=== PATIENT | female | born 1960 | race Caucasian/White ===

== ENCOUNTER 2016-10-28 01:55 | Inpatient (IN) | payer OTHER ==
[2016-10-28] VITALS (9 sets, daily range): BP systolic 130–163; BP diastolic 62–88; PULSE 82–102; RESP 16–20; TEMP 98.1–100.3; O2SAT 91–97
[~2016-10-28] VITALS: Ht 170.2 cm; Wt 142.9 kg
--- NOTE | 2016-10-28 01:55 | NUR ---
ER at bedside examining patient.
--- NOTE | 2016-10-28 01:55 | NUR ---
Patient to ER bed 6 to gown for evaluation. Side rails up.
--- NOTE | 2016-10-28 01:55 | NUR ---
Pt came from home, A&Ox4, c/o swollen tongue x 3hrs, sore throat with pain level of 4/10. Pt appears to have difficulty talking due to her swollen tougue. Pt denies fever, SOB, N/V. aware
[2016-10-28] MEDS ORDERED: EPINEPHrine 1 MG/ML AMP IM ONE ×2 (02:00→02:15)
[2016-10-28] MEDS ORDERED: DIPHENHYDRAMINE INJ 50 MG/ML VIAL IVP ONE ×2 (02:00→02:45)
[2016-10-28] MEDS ORDERED: methylPREDNISolone SOD SUCC/PF 62.5 MG/ML VIAL IVP ONE (02:00)
[2016-10-28 02:46] LABS: BASOPHILS % (AUTO) 0.4 % (0.0-2.0); EOSINOPHILS # (AUTO) 0.2 K/uL (0.0-0.4); EOSINOPHILS % (AUTO) 2.8 % (0.0-4.0); HEMATOCRIT 26.8 % (36-48); HEMOGLOBIN 9.2 g/dL (12.0-16.0); LYMPHOCYTES # (AUTO) 1.3 K/uL (1.0-5.5); LYMPHOCYTES % (AUTO) 20.8 % (20.5-51.5); MEAN CORPUSCULAR HEMOGLOBIN 31 pg (27-31); MEAN CORPUSCULAR HGB CONC 34 % (32-36); MEAN CORPUSCULAR VOLUME 92 fL (79.0-98.0); MONOCYTES # (AUTO) 0.5 K/uL (0.0-1.0); MONOCYTES % (AUTO) 7.4 % (1.7-9.3); NEUTROPHILS # (AUTO) 4.4 K/uL (1.8-7.7); NEUTROPHILS % (AUTO) 68.6 % (40.0-70.0); PLATELET COUNT (AUTO) 138 K/uL (130-430); RED BLOOD CELL COUNT(AUTO) 2.93 MIL/uL (4.2-6.2); RED CELL DISTRIBUTION WIDTH 18.4 % (9.0-15.0); WHITE BLOOD COUNT (AUTO) 6.4 K/uL (4.8-10.8)
[2016-10-28 02:51] LABS: INR 1.1 (0.8-1.2); PROTHROMBIN TIME 12.4 SECS (9.5-12.5)
[2016-10-28 02:58] LABS: CALCIUM 9.1 mg/dL (8.4-11.0); CREATININE 1.15 mg/dL (0.55-1.30); POTASSIUM 3.7 mmol/L (3.5-5.1)
[2016-10-28 03:03] LABS: ALBUMIN 3.3 g/dL (3.4-4.8); TOTAL BILIRUBIN 0.9 mg/dL (0.0-1.0); TOTAL PROTEIN, SERUM 8.9 g/dL (6.4-8.3)
--- NOTE | 2016-10-28 03:30 | NUR ---
Pt resting in bed. Pt states decrease in pain and tougue swelling. Pt denies SOB. Pt is able to talk better due to reduced tougue swelling. Vital signs stable.
[2016-10-28] MEDS ORDERED: OMEP20CA10 PO (03:51)
[2016-10-28] MEDS ORDERED: VITD2000 PO (03:51)
[2016-10-28] MEDS ORDERED: GLIP-172 PO (03:51)
[2016-10-28] MEDS ORDERED: FOLI-43 PO (03:51)
[2016-10-28] MEDS ORDERED: BENA20TA2 PO (03:51)
[2016-10-28] MEDS ORDERED: ONDANSETRON HCL 4 MG/2 ML VIAL IVP PRN (04:00)
[2016-10-28] MEDS: FAMOTIDINE PF 20 MG/2 ML VIAL IVP SCH ×3 (04:00→21:04)
[2016-10-28] MEDS ORDERED: hydrALAZINE HCL 20 MG/ML VIAL IVP PRN (04:00)
--- NOTE | 2016-10-28 05:00 | NUR ---
ADMISSION NOTE Received patient from ER via gurney. Patient admitted with diagnosis of Angioedema due to Gerardo inhibitor. Patient is awake, alert, oriented X 4. Patient oriented to hospital room, call light, toileting, pain management and safety-teach back done. Patient informed that Destinee will be her nurse and that their room number is 123A. Personal belongings checked and Belongings List documented. Call light within reach.
--- NOTE | 2016-10-28 05:05 | NUR ---
Patient will be admitted to care of Dr Mata. Admitted to Telemetry unit. Will go to room 123. Belongings list completed. Summary report printed. Report given to MARY ANNE Menendez.
--- NOTE | 2016-10-28 05:15 | NUR ---
Admission Assessment Received patient from ED, AAO x4, no acute distress noted. Assessment complete, vital signs stable, no complain of pain or shortness of breath at this time. IV noted to right AC, saline locked at this time, flushes well, IV fluids to be started. Plan of care discussed with patient, she verbalized understanding. Patient oriented to room and call light and is able to demonstrate correct use. Education provided to call for assistance if she needs to get out of bed, she verbalized understanding. Call light is within reach, all fall and safety precautions in place, will continue to monitor for change in patient status.
[2016-10-28] MEDS: methylPREDNISolone SOD SUCC 40 MG/ML VIAL IVP SCH ×3 (05:30→21:05)
[2016-10-28] MEDS: NACL 0.9% 1,000 ML IV SCH ×2 (05:31→20:48)
[2016-10-28] MEDS ORDERED: LORazepam 2 MG/ML VIAL IM PRN (07:00)
[2016-10-28] MEDS ORDERED: DEXTROSE 50%-WATER 50 ML DISP.SYRIN IVP PRN ×2 (07:00)
[2016-10-28] MEDS ORDERED: GLUCOSE 15 GM GEL (in 37.5 GM TUBE) PO PRN ×2 (07:00)
[2016-10-28] MEDS ORDERED: FUROSEMIDE 20 MG/2 ML VIAL IVP ONE (07:00)
[2016-10-28 07:05] LABS: BASOPHILS % (AUTO) 0.2 % (0.0-2.0); EOSINOPHILS % (AUTO) 0.6 % (0.0-4.0); HEMATOCRIT 26.5 % (36-48); LYMPHOCYTES # (AUTO) 0.3 K/uL (1.0-5.5); LYMPHOCYTES % (AUTO) 5.6 % (20.5-51.5); MEAN CORPUSCULAR HEMOGLOBIN 31 pg (27-31); MEAN CORPUSCULAR HGB CONC 34 % (32-36); MEAN CORPUSCULAR VOLUME 91 fL (79.0-98.0); MONOCYTES # (AUTO) 0.1 K/uL (0.0-1.0); MONOCYTES % (AUTO) 2.2 % (1.7-9.3); NEUTROPHILS # (AUTO) 5.6 K/uL (1.8-7.7); NEUTROPHILS % (AUTO) 91.4 % (40.0-70.0); PLATELET COUNT (AUTO) 139 K/uL (130-430); RED CELL DISTRIBUTION WIDTH 18.2 % (9.0-15.0)
[2016-10-28 07:28] LABS: CALCIUM 9.2 mg/dL (8.4-11.0); CREATININE 1.1 mg/dL (0.55-1.30); PHOSPHORUS 3.2 mg/dL (2.7-4.5); POTASSIUM 4.5 mmol/L (3.5-5.1)
--- NOTE | 2016-10-28 09:08 | NUR ---
Initial Note Patient A/O x4. Respirations even and unlabored. Denies difficulty breathing. IV access patent. Reviewed use of call light with patient, acknowledged understanding. Fall and safety precautions in place. Patient ambulated 5 feet, gait steady.
[2016-10-28] MEDS: ACETAMINOPHEN 325 MG TABLET PO PRN ×3 (09:12→21:06)
[2016-10-28] MEDS: ENOXAPARIN SODIUM 40 MG/0.4 ML SYRINGE SUBCUT SCH (09:13)
--- NOTE | 2016-10-28 10:47 | NUR ---
Notes Patient continues to have low grade fever of 99.9- 100.3; Tylenol administered and cooling measures initiated. FFP transfusion will be started once temperature decreases.
--- NOTE | 2016-10-28 12:14 | NUR ---
Notes Patient exhibiting shortness of breath without exertion. RT was called to administer PRN breathing treatment.
[2016-10-28] MEDS: ALBUTEROL SULFATE 0.083% 2.5 MG/3 ML VIAL.NEB INH PRN (12:32)
[2016-10-28] MEDS: IPRATROPIUM BROM 0.5 MG/2.5 ML VIAL.NEB (ATROVENT) INH PRN (12:32)
--- NOTE | 2016-10-28 12:50 | NUR ---
FFP INITIATION: Consent signed per patient agreeing to administration of blood. Blood has been type and crossmatched. Blood sent from blood bank. Information on unit of FFP checked against patient wristband at bedside by two nurses. All information matches. Patient or responsible green party informed of potential complications associated with blood transfusion. Informed of possible transfusion reaction symptoms. Aware of need to notify nurse at once of itching, shortness of breath, flushing, feeling of impending doom, or other symptoms not previously present. Vital signs taken within 5 minutes prior to initiation of transfusion. RN will remain with patient for first 15 minutes of transfusion at which time vital signs will be re-assessed.
--- NOTE | 2016-10-28 13:05 | NUR ---
Notes Patient denies symptoms of adverse reaction to transfusion of FFP. VSS.
--- NOTE | 2016-10-28 14:32 | NUR ---
Notes Complaint of mild discomfort addressed per MD orders. Denies difficulty breathing at this time.
--- NOTE | 2016-10-28 16:41 | NUR ---
Notes Blood sugar 290 at this time. Will administer insulin per MD orders.
[2016-10-28] MEDS: INSULIN REGULAR, HUMAN 100 UNITS/ML, 10 ML VIAL (novoLIN R) SUBCUT PRN ×2 (17:08→21:14)
[2016-10-28 18:00] LABS: URINE SODIUM, RANDOM 35 mmol/L (40-220)
--- NOTE | 2016-10-28 19:42 | NUR ---
Closing Notes Patient needs met throughout shift. Patient maintained low grade fever at 99.5 majority of the shift. Tylenol and cooling measures applied throughout shift. Patient care endorsed to oncoming shift nurse.
--- NOTE | 2016-10-28 20:00 | NUR ---
PM Shift Assessment Received patient lying in bed, no acute distress noted. Assessment complete, no complain of pain or shortness of breath at this time. IV noted to right AC, IV fluids infusing well, no redness or swelling to IV site. BLE edema noted. Plan of care and safety education discussed with patient, she verbalized understanding. Patient is verbally able to make needs known and encouraged to do so. Call light is within reach, all fall and safety precautions in place, will continue to monitor for change in patient status.
--- NOTE | 2016-10-28 22:15 | NUR ---
RN Rounds Patient is resting quietly in bed, no acute distress noted. Per Dr Mata to check blood sugar ACHS, new orders noted. Blood sugar was assessed and insulin provided per sliding scale. Reminded patient to call for assistance if she needs to get out of bed, she verbalized understanding. Call light is within reach, all fall and safety precautions in place, will continue to monitor for change in patient status.
--- NOTE | 2016-10-28 23:29 | NUR ---
FFP INITIATION: Consent signed per patient agreeing to administration of blood and blood products. Blood has been type and crossmatched. Fresh frozen plasma sent from blood bank. Information on unit of blood checked against patient wristband at bedside by two nurses. All information matches. Patient or responsible green party informed of potential complications associated with blood transfusion. Informed of possible transfusion reaction symptoms. Aware of need to notify nurse at once of itching, shortness of breath, flushing, feeling of impending doom, or other symptoms not previously present. Vital signs taken within 5 minutes prior to initiation of transfusion. RN will remain with patient for first 15 minutes of transfusion at which time vital signs will be re-assessed.
[2016-10-29 00:02] VITALS: BP 136/64; PULSE 85; RESP 17; TEMP 97.4; O2SAT 99
--- NOTE | 2016-10-29 00:26 | NUR ---
RN Rounds Patient is resting quietly in bed, no acute distress noted. Fresh frozen plasma infusing well, no transfusion reaction noted. Warm blanket provided for comfort. Call light is within reach, all fall and safety precautions in place, will continue to monitor.
[2016-10-29 04:00] VITALS: BP 148/85; PULSE 92; RESP 20; TEMP 97.8; O2SAT 98
[2016-10-29] MEDS: methylPREDNISolone SOD SUCC 40 MG/ML VIAL IVP SCH (06:21)
[2016-10-29] MEDS: NACL 0.9% 1,000 ML IV SCH (06:22)
[2016-10-29] MEDS: INSULIN REGULAR, HUMAN 100 UNITS/ML, 10 ML VIAL (novoLIN R) SUBCUT PRN ×2 (06:25→17:39)
[2016-10-29 06:32] LABS: CALCIUM 9.2 mg/dL (8.4-11.0); CREATININE 1.22 mg/dL (0.55-1.30); POTASSIUM 4.4 mmol/L (3.5-5.1)
[2016-10-29 06:56] LABS: BASOPHILS % (AUTO) 0.1 % (0.0-2.0); EOSINOPHILS % (AUTO) 0.6 % (0.0-4.0); HEMATOCRIT 25.5 % (36-48); HEMOGLOBIN 8.6 g/dL (12.0-16.0); LYMPHOCYTES # (AUTO) 0.5 K/uL (1.0-5.5); LYMPHOCYTES % (AUTO) 6.9 % (20.5-51.5); MEAN CORPUSCULAR HEMOGLOBIN 31 pg (27-31); MEAN CORPUSCULAR HGB CONC 34 % (32-36); MEAN CORPUSCULAR VOLUME 91 fL (79.0-98.0); MONOCYTES # (AUTO) 0.5 K/uL (0.0-1.0); MONOCYTES % (AUTO) 6.4 % (1.7-9.3); PLATELET COUNT (AUTO) 149 K/uL (130-430); RED CELL DISTRIBUTION WIDTH 18.2 % (9.0-15.0)
--- NOTE | 2016-10-29 07:20 | NUR ---
Closing Notes Patient is sleeping, respirations are even and unlabored, no acute distress noted. IV fluids infusing well. Patient is stable, all needs met throughout shift. SBAR report was endorsed to AM nurse at bedside.
[2016-10-29 08:00] VITALS: BP 153/78; PULSE 98; RESP 22; TEMP 97.8; O2SAT 98
[2016-10-29] MEDS: FAMOTIDINE PF 20 MG/2 ML VIAL IVP SCH ×2 (09:04→20:51)
[2016-10-29] MEDS: ENOXAPARIN SODIUM 40 MG/0.4 ML SYRINGE SUBCUT SCH (09:04)
--- NOTE | 2016-10-29 09:45 | NUR ---
DR MCGINNIS IN TO SEE PATIENT
[2016-10-29] MEDS ORDERED: METOPROLOL SUCCINATE 25 MG TAB.SR.24H (TOPROL XL) PO ONE (10:00)
--- NOTE | 2016-10-29 10:30 | NUR ---
IV FLUIDS DC'D. PATIENT IS ABLE TO AMBULATE TO CHAIR WITHOUT ASSISTANCE. STEADY GAIT HOWEVER PATIENT STATES SHE USES A WALKER AT HOME.
--- NOTE | 2016-10-29 11:00 | NUR ---
INFORMATION ABOUT METOPROLOL GIVEN TO PATIENT IN HANDOUT FORM
[2016-10-29 12:00] VITALS: BP 165/88; PULSE 74; RESP 21; TEMP 97.4
--- NOTE | 2016-10-29 12:30 | NUR ---
UNABLE TO PERFORM BG CHECK PRIOR TO LUNCH DUE TO NO MACHINES WORKING/AVAILABLE ON THE UNIT
--- NOTE | 2016-10-29 13:53 | NUR ---
OPENING NOTE PATIENT IS AWAKE, ALERT AND ORIENTED. LUNGS CLEAR TO BASES, HEART TONES GOOD. DENIES ANY PAIN AT THIS TIME. +4 PITTING EDEMA TO BLE. PATIENT STATES HER TONGUE STILL FEELS SWOLLEN. STATES SHE HAS BEEN ON AN CADEN INHIBITOR FOR SEVERAL YEARS WITH NO REACTIONS IN THE PAST. PT ALSO STATES SHE DRINKS A FIFTH OF VODKA EVERY DAY Addendum: 10/29/16 at 1356 by Sandra Irene RN TIMESTAMP FOR 0800 ENTRY. LATE ENTRY
--- NOTE | 2016-10-29 13:59 | NUR ---
DR MCGINNIS NOTIFIED OF ELEVATED HR AND ORDERS FOR ATIVAN GIVEN. PT TAUGHT IMPENDING SIGNS OF SEIZURE
[2016-10-29] MEDS: LORazepam 2 MG/ML VIAL IVP PRN (14:22)
--- NOTE | 2016-10-29 16:18 | NUR ---
PATIENT'S IV NO LONGER PATENT. DC'D AND PRESSURE DRESSING APPLIED. NEW 22 G IV TO LEFT FOREARM STARTED. FLUSHES EASILY
[2016-10-29 16:33] VITALS: BP 148/71; PULSE 82; RESP 20; TEMP 97.1; O2SAT 98
--- NOTE | 2016-10-29 17:12 | NUR ---
PATIENT TAKEN OUTSIDE VIA WC TO SMOKE
--- NOTE | 2016-10-29 18:43 | NUR ---
CLOSING NOTE PATIENT BG 183 COVERED W 2 UNITS OF INSULIN. PATIENT REMAINS ALERT, ORIENTED AND COOPERATIVE. DENIES ANY PAIN. PT CONTINUES TO HAVE SOME TROUBLE TALKING DUE TO HER TONGUE BEING SWOLLEN. PATIENT HAD REDRESSED HERSELF IN CLOTHING FROM HOME. THE SHIRT IS STAINED WITH COFFEE AND ACCIDENTAL BLOOD SPILL FROM IV SITE. PT REQUESTING NOT TO WEAR A HOSPITAL GOWN.
[2016-10-29 20:00] VITALS: BP 134/67; PULSE 86; RESP 20; TEMP 98.2; O2SAT 99
--- NOTE | 2016-10-29 20:00 | NUR ---
PM Shift Assessment Received patient lying in bed, no acute distress noted. Assessment complete, vital signs stable, no complain of pain or shortness of breath at this time. IV noted to left forearm, saline locked at this time, no redness or swelling to IV site. BLE pitting edema noted, no tongue swelling noted, no complain of problem swallowing of difficulty breathing at this time. Plan of care and safety education discussed with patient, she verbalized understanding. Patient is verbally able to make needs known and encouraged to do so. Call light is within reach, all fall and safety precautions in place, will continue to monitor for change in patient status.
--- NOTE | 2016-10-29 22:14 | NUR ---
RN Rounds Patient is resting quietly in bed, no acute distress noted. Patient requesting to go outside to smoke, waiver signed. Patient was wheeled out and brought safely back to room. Scheduled medications were administered per MD order earlier. Blood sugar was assessed, no insulin administered per sliding scale, bedtime snack provided. Call light is within reach, all fall and safety precautions in place, will continue to monitor. Addendum: 10/30/16 at 0227 by Destinee Pina RN Respiratory therapist was called for PRN breathing treatment per patient request. Smoking cessation education provided, patient verbalized understanding and states "I've been smoking since I was a little girl, it's not going to stop me now."
[2016-10-30] VITALS (25 sets, daily range): BP systolic 74–181; BP diastolic 44–95; PULSE 77–129; RESP 18–37; TEMP 97–98.5; O2SAT 86–99; Ht 170.2 cm; Wt 142.9 kg
[2016-10-30] MEDS: LORazepam 2 MG/ML VIAL IVP PRN ×5 (00:23→18:22)
--- NOTE | 2016-10-30 00:24 | NUR ---
RN Rounds Patient sitting up at bedside in chair, noted to be anxious and with delirium tremors, PRN Ativan was administered per MD order, will reassess for relief of symptoms. Assisted patient safely to bed and made comfortable. Remained with patient for comfort and reassurance. Encouraged patient to call for assistance as needed. Call light is within reach, all fall and safety precautions in place, will continue to monitor.
--- NOTE | 2016-10-30 02:21 | NUR ---
RN Rounds Patient is sleeping, respirations are even and unlabored, no acute distress noted. Call light is within reach, all fall and safety precautions in place, will continue to monitor.
[2016-10-30] MEDS: DIPHENHYDRAMINE INJ 50 MG/ML VIAL IVP PRN (04:24)
--- NOTE | 2016-10-30 04:30 | NUR ---
RN Rounds Patient sitting up in bed, disoriented after waking up, she was reoriented x4 and verbalized understanding. Assisted up to restroom and safely back to bed. Complains of "minor tongue swelling, but no difficulty swallowing or breathing". O2 saturation 97% on room air. PRN Benadryl was administered per MD order, will reassess for relief of symptoms. Encouraged to call with all needs, she verbalized understanding. Call light is within reach, all fall and safety precautions in place, will continue to monitor.
--- NOTE | 2016-10-30 05:28 | NUR ---
Ativan Administered Patient noted with increasing agitation. Up to restroom with assistance, unsteady gait noted, assisted safely back to bed. Reminded patient not to get up unassisted for safety, patient yelling "Get away from me, stand back!" and holding up fist. PRN Ativan was administered per MD orders. Call light is within reach, all fall and safety measures in place, will continue to monitor closely.
[2016-10-30 06:28] LABS: CALCIUM 9.4 mg/dL (8.4-11.0); CREATININE 1.26 mg/dL (0.55-1.30); POTASSIUM 3.8 mmol/L (3.5-5.1)
[2016-10-30] MEDS ORDERED: LORazepam 2 MG/ML VIAL IM ONE (06:45)
[2016-10-30] MEDS ORDERED: LORazepam 2 MG/ML VIAL ONE (06:49)
[2016-10-30 06:54] LABS: BASOPHILS % (AUTO) 0.5 % (0.0-2.0); EOSINOPHILS # (AUTO) 0.1 K/uL (0.0-0.4); EOSINOPHILS % (AUTO) 0.7 % (0.0-4.0); HEMOGLOBIN 8.9 g/dL (12.0-16.0); LYMPHOCYTES # (AUTO) 1.3 K/uL (1.0-5.5); LYMPHOCYTES % (AUTO) 14.9 % (20.5-51.5); MEAN CORPUSCULAR HEMOGLOBIN 31 pg (27-31); MEAN CORPUSCULAR HGB CONC 33 % (32-36); MEAN CORPUSCULAR VOLUME 92 fL (79.0-98.0); MONOCYTES # (AUTO) 0.6 K/uL (0.0-1.0); MONOCYTES % (AUTO) 6.7 % (1.7-9.3); NEUTROPHILS # (AUTO) 6.5 K/uL (1.8-7.7); NEUTROPHILS % (AUTO) 77.2 % (40.0-70.0); PLATELET COUNT (AUTO) 167 K/uL (130-430); RED BLOOD CELL COUNT(AUTO) 2.93 MIL/uL (4.2-6.2); RED CELL DISTRIBUTION WIDTH 18.1 % (9.0-15.0); WHITE BLOOD COUNT (AUTO) 8.5 K/uL (4.8-10.8)
[2016-10-30] MEDS ORDERED: LORazepam 2 MG/ML VIAL IVP ONE (07:00)
--- NOTE | 2016-10-30 07:10 | NUR ---
Transfer to ICU Patient noted with increased agitation and anger. Got out of bed and began ambulating with unsteady gait to hallway. Asked for pen and paper, they were provided, she began writing something on paper, would not allow nurses to read. Charge nurse and myself standing with patient. Patient refused to go back to bed and began screaming and swinging her arms. MD was paged and on the phone, Charge Nurse remained with patient. New orders for Ativan 3mg IM once now and increase PRN Ativan to 3mg E0ryals. During phone call with MD, Charge Nurse stated that patient turned to ambulate and became unsteady. Patient was assisted to floor by warranty administrator. Patient assisted safely back to bed, IM Ativan was administered. Patient was moved closer to nurses station for close monitoring. Once again she became combative, kicking, swinging and screaming. Patient trying to get out of bed. MD was called. New orders for transfer to ICU for closer monitoring due to DT's. Also started patient on Librium. SBAR report was endorsed to IT PROGRAMMER ANALYST at bedside.
[2016-10-30] MEDS: chlordiazePOXIDE HCL 25 MG CAPSULE PO SCH ×3 (07:30→23:30)
--- NOTE | 2016-10-30 07:40 | NUR ---
Transfer to ICU Received report from Destinee NORTH from Telemetry. Per report, pt had written a note regarding a "dog bomb police at our facility," with some illegible writing. Received pt from telemetry unit accompanied by 2 security and 2 RNs. Pt noted to be combative and verbally abusive, and is now sleeping in bed. IV 22G in RFA intact, patent. Edema noted on BLE. Situated pt to room and call light. Will continue to monitor.
[2016-10-30] MEDS: ALBUTEROL SULFATE 0.083% 2.5 MG/3 ML VIAL.NEB INH PRN ×2 (07:59→20:28)
[2016-10-30] MEDS: IPRATROPIUM BROM 0.5 MG/2.5 ML VIAL.NEB (ATROVENT) INH PRN ×2 (07:59→20:28)
[2016-10-30] MEDS ORDERED: NICOTINE 14 MG/24 HR PATCH.TD24 TD SCH (09:00)
[2016-10-30] MEDS: FAMOTIDINE PF 20 MG/2 ML VIAL IVP SCH ×2 (09:00→21:00)
[2016-10-30] MEDS: ENOXAPARIN SODIUM 40 MG/0.4 ML SYRINGE SUBCUT SCH (09:00)
[2016-10-30] MEDS ORDERED: METOPROLOL SUCCINATE 25 MG TAB.SR.24H (TOPROL XL) PO SCH (09:00)
--- NOTE | 2016-10-30 09:00 | NUR ---
TRANSFER OF CARE RECEIVED PT FROM MARY ANNE PÉREZ. PT IS YELLING AND THRASHING IN BED. LEGS ARE OVER SIDERAIL OF BED. ATTEMPTED IN ASSISTING PT WITH REPOSITIONING. PT IS THRASHING AND KICKING ME. PT CONT YELLING- DOES NOT RESPOND TO QUESTIONS OF ORIENTATION. CANNOT ASSESS HEART OR LUNG SOUNDS- PT CONT TO KICK ME. PT IS CONNECTED TO ICU MONITOR. WILL CONT TO MONITOR.
--- NOTE | 2016-10-30 09:15 | NUR ---
RN NOTES PATIENT YELLING AT THIS TIME, SEVERELY AGITATED, TRYING TO GET OUT OF SOFT WRIST RESTRAINTS. SECURITY HERE FOR ASSISTANCE. PATIENT ENCOURAGED TO CALM DOWN, TO NO AVAIL. IV LOCK INFILTRATED, g20 ANGIO INSERTED ON THE RIGHT WRIST, IV LOCK FLUSHED. PATIENT MEDICATED WITH ATIVAN IVP FOR SEVERE AGITATION. WILL CONTINUE TO MONITOR CLOSELY.
[2016-10-30] MEDS ORDERED: HALOPERIDOL LACTATE 5 MG/ML VIAL IVP ONE (10:00)
--- NOTE | 2016-10-30 10:00 | NUR ---
02 SAT 02 SAT DROPPING TO 80S, 85-89% ON NC.
[2016-10-30] MEDS: D5/0.45 NS 1,000 ML IV SCH (10:04)
--- NOTE | 2016-10-30 10:41 | NUR ---
CALLED SPOKE WITH DR MCGINNIS. NEW ORDERS FOR BIPAP ORDERED. RT CALLED AND MADE AWARE
--- NOTE | 2016-10-30 11:00 | NUR ---
F/C F/C PLACED. ASSISTED BY RADIO TESTER, WARREN, AND SECURITY MCKEON. PT SKY PROC WELL. FLASH URINE NOTED
[2016-10-30] MEDS: FOLIC ACID 1 MG, THIAMINE HCL 100 MG, MAGNESIUM SULFATE 1 GM, MVI 10 ML in NACL 0.9% 1,... IV SCH (11:54)
--- NOTE | 2016-10-30 13:06 | NUR ---
IV RE-INSERTION: Complaining of pain to IV site. Restarted on RFA. Successful after 2 attempts- PT THRASHING. Resumed current IVF of BANANA MADSEN and regulated @ 80 per hour. Will observe for any signs of infiltration.
--- NOTE | 2016-10-30 16:40 | NUR ---
FAMILY BROTHER HERE TO SEE PT. UPDATED BROTHER ON PT STATUS. PT LIVES WITH BROTHER. ALL QUESTIONS ANSWERED. REVIEWED POC. BROTHER- KIP, VERBALIZED UNDERSTANDING
[2016-10-30] MEDS: INSULIN REGULAR, HUMAN 100 UNITS/ML, 10 ML VIAL (novoLIN R) SUBCUT PRN ×2 (17:52→21:16)
[2016-10-30 18:12] LABS: BLOOD GAS PH 7.311 (7.350-7.450)
[2016-10-30 18:13] LABS: ABG TOTAL HEMOGLOBIN 10.6 G/dL (12.0-18.0); BLOOD GAS BASE EXCESS -4.7 mmol/L (-3.0-3.0); BLOOD GAS COHb% 0.4 % (0.5-1.5); BLOOD GAS HHB 18.8 % (0.0-6.0); BLOOD O2Hb% 80.3 % (94.0-97.0)
--- NOTE | 2016-10-30 18:42 | NUR ---
CLOSING NOTE PT RESTING IN BED. ALL NEEDS MET. HOURLY AND PRN ROUNDS OBSERVED THROUGHOUT SHIFT. WILL ENDORSE REPORT TO NOC SHIFT NURSE.
--- NOTE | 2016-10-30 20:00 | NUR ---
LETHARGIC, RESPONDS TO NOXIOUS STIMULI. RESTLESS AT TIMES. SPEECH GARBLED. ON BIPAP 10/5, FIO2 50%, BUR 20. THRASHES LEGS OVER SIDE RAILS. SIDE RAILS PADDED. RADHA SOFT WRIST RESTRAINTS ON FOR SAFETY. GONZALEZ CATH PATENT DRAINING CLEAR LUIS URINE TO GRAVITY.
--- NOTE | 2016-10-30 21:00 | NUR ---
ACCU-CHEK 172, 4 UNITS REGULAR INSULIN SQ GIVEN. HS CARE. FREQUENT REPOSITIONING AND INTERVENTION. ORAL CARE GIVEN WITH TOOTHETTES AND ORAL RINSE. SUCTIONED NASOTRACHEALLY BY RT WITH COPIOUS AMOUNTS OF TENACIOUS NICHOLSON COLORED MUCUS OBTAINED.
--- NOTE | 2016-10-30 22:00 | NUR ---
UO ADEQUATE. FREQUENT REPOSITIONING. PULSES PALPABLE. BANANA BAG AT 80CC/HR ALTERNATED WITH D5 1/2NS AT 75CC/HR.
--- NOTE | 2016-10-30 23:25 | NUR ---
DR DAVILA NOTIFIED OF DESATURATION. ABG'S ORDERED, DR ELLIS CONSULT, ER DR TO INTUBATE, ABG'S 30 MIN AFTER INTUBATION, CXR AND ABG'S IN AM, START PROPOFOL, TITRATE FOR SBP> 90, TO BE IMPLEMENTED.
[2016-10-31] VITALS (36 sets, daily range): BP systolic 59–136; BP diastolic 38–81; PULSE 66–99; RESP 14–27; TEMP 97.8–98.8; O2SAT 94–100
--- NOTE | 2016-10-31 | NUR ---
ER HERE, INTUBATED PT. DR DE LA ROSA, NUTRITION TEACHER FOR DR ELLIS, NOTIFIED OF ABG'S, NEW ORDERS GIVEN AND IMPLEMENTED.
[2016-10-31] MEDS ORDERED: ETOMIDATE 20 MG/ 10 ML VIAL (AMIDATE) IVP ONE (00:05)
[2016-10-31] MEDS ORDERED: SUCCINYLCHOLINE CHLORIDE 20 MG/ML(QUELICIN) IVP ONE (00:05)
[2016-10-31 01:00] LABS: BLOOD GAS PH 7.168 (7.350-7.450)
[2016-10-31 01:01] LABS: BLOOD GAS BASE EXCESS -5.1 mmol/L (-3.0-3.0)
[2016-10-31 01:02] LABS: ABG TOTAL HEMOGLOBIN 10.7 G/dL (12.0-18.0); BLOOD GAS COHb% 0.2 % (0.5-1.5); BLOOD GAS HHB 13.9 % (0.0-6.0); BLOOD O2Hb% 85.8 % (94.0-97.0)
[2016-10-31 01:07] LABS: BLOOD GAS BASE EXCESS -3.2 mmol/L (-3.0-3.0); BLOOD GAS COHb% 0.5 % (0.5-1.5); BLOOD GAS HHB 0.8 % (0.0-6.0); BLOOD O2Hb% 98.2 % (94.0-97.0)
[2016-10-31] MEDS: D5/0.45 NS 1,000 ML IV SCH (01:08)
[2016-10-31] MEDS: PROPOFOL DRIP 100 ML IV PRN ×5 (01:08→21:14)
--- NOTE | 2016-10-31 01:20 | NUR ---
BOUTS OF RESTLESSNESS. PROPOFOL STARTED AT 5 MCG/KG/MIN.
--- NOTE | 2016-10-31 02:00 | NUR ---
BP LOW, PROPOFOL OFF AT THIS TIME. DR DAVILA NOTIFIED. ORDERED 500CC NS BOLUS, START LEVOPHED TO KEEP SBP>90, CARRIED OUT.
[2016-10-31] MEDS ORDERED: NOREPINEPHRINE 4 MG/4 ML VIAL IV ONE (02:14)
[2016-10-31] MEDS ORDERED: NS 500 ML IV ONE (02:15)
[2016-10-31] MEDS ORDERED: PIPERACILLIN/TAZOBACTAM 4.5 GM/VIAL (ZOSYN) IV ONE (02:40)
[2016-10-31] MEDS ORDERED: IPRATROPIUM/ALBUTEROL SULFATE 3 ML AMPUL.NEB INH PRN (02:45)
--- NOTE | 2016-10-31 02:45 | NUR ---
BP 80/58, LEVOPHED DRIP TITRATED TO 12 MCG/MIN.
[2016-10-31] MEDS: PIPERACILLIN/TAZO 4.5GM/DEX-IS 100 ML IV SCH ×3 (03:00→20:00)
[2016-10-31] MEDS: methylPREDNISolone SOD SUCC 40 MG/ML VIAL IVP SCH ×3 (03:03→20:00)
[2016-10-31] MEDS ORDERED: VANCOMYCIN HCL 1000 MG/VIAL IV ONE (03:18)
[2016-10-31] MEDS ORDERED: VANCOMYCIN HCL 500 MG/VIAL IV ONE (03:19)
--- NOTE | 2016-10-31 03:50 | NUR ---
RESTLESS, DIPRIVAN STARTED AT 10MCG/KG/MIN.
[2016-10-31] MEDS ORDERED: VANCOMYCIN HCL 1,500 MG in NS 250 ML IV ONE (04:00)
--- NOTE | 2016-10-31 04:00 | NUR ---
VERY RESTLESS. THRASHING LEGS. DIPRIVAN TITRATED UP TO 15 MCG/KG/MIN, THEN TO 20 MCG/KG/MIN. SUCTIONED. TURNED. ORAL CARE GIVEN. UO GOOD.
--- NOTE | 2016-10-31 04:20 | NUR ---
DIPRIVAN TITRATED UP TO 25 MCG/KG/MIN. LEFT FA PIV DISLODGED. PIV STARTED IN LEFT WRIST, GAUGE #20. PROPOFOL CONNECTED TO THIS PIV.
[2016-10-31] MEDS: IPRATROPIUM/ALBUTEROL SULFATE 3 ML AMPUL.NEB INH SCH ×6 (04:33→23:44)
--- NOTE | 2016-10-31 05:00 | NUR ---
CHG BATH GIVEN. GONZALEZ CARE, SANDEEP-CARE, BACK CARE GIVEN. Z-GUARD TO REDDENED AREAS AND UNDER SKIN FOLDS, SKIN CARE RENDERED. COMPLETE LINEN CHANGE. DOES NOT ASSIST WITH TURNING. SKY PROC WELL.
[2016-10-31 05:43] LABS: BILIRUBIN,URINE NEGATIVE (NEGATIVE); BLOOD, URINE 2+ (NEGATIVE); COLOR,URINE YELLOW (YELLOW); GLUCOSE,URINE NEGATIVE (NEGATIVE); KETONES,URINE NEGATIVE (NEGATIVE); LEUKOCYTE ESTERASE ,URINE NEGATIVE (NEGATIVE); NITRITE, URINE NEGATIVE (NEGATIVE); PROTEIN URINE TRACE (NEGATIVE); UROBILINOGEN,URINE 0.2 (0.2-1.0)
[2016-10-31] MEDS ORDERED: PIPERACILLIN/TAZO 4.5GM/DEX-IS 100 ML IV SCH (06:00)
--- NOTE | 2016-10-31 06:00 | NUR ---
SUCTIONED AND TURNED Q2 HRS AND PRN. UO GOOD. PULSES PALPABLE. BOUTS OF RESTLESSNESS. REMAINS IN GUARDED CONDITION.
[2016-10-31 06:14] LABS: CLARITY/URINE SLIGHTLY CLOUDY (CLEAR)
[2016-10-31 06:25] LABS: BACTERIA,URINE FEW /HPF (None Seen); RBC,URINE 20-50 /HPF (0-3)
[2016-10-31 06:26] LABS: MUCUS,URINE None Seen /LPF (None Seen)
--- NOTE | 2016-10-31 06:30 | NUR ---
ACCU-CHEK 222, 4 UNITS REGULAR INSULIN SQ GIVEN PER SLIDING SCALE COV.
[2016-10-31] MEDS: INSULIN REGULAR, HUMAN 100 UNITS/ML, 10 ML VIAL (novoLIN R) SUBCUT PRN ×4 (06:35→22:56)
[2016-10-31 06:48] LABS: INR 1.2 (0.8-1.2); PROTHROMBIN TIME 12.6 SECS (9.5-12.5)
[2016-10-31 07:02] LABS: CALCIUM 8.8 mg/dL (8.4-11.0); CREATININE 1.26 mg/dL (0.55-1.30); POTASSIUM 4.2 mmol/L (3.5-5.1)
[2016-10-31 07:06] LABS: BASOPHILS % (AUTO) 0.2 % (0.0-2.0); EOSINOPHILS % (AUTO) 0.1 % (0.0-4.0); HEMATOCRIT 27.3 % (36-48); LYMPHOCYTES # (AUTO) 0.4 K/uL (1.0-5.5); LYMPHOCYTES % (AUTO) 4.3 % (20.5-51.5); MEAN CORPUSCULAR HEMOGLOBIN 31 pg (27-31); MEAN CORPUSCULAR HGB CONC 33 % (32-36); MEAN CORPUSCULAR VOLUME 93 fL (79.0-98.0); MONOCYTES # (AUTO) 0.7 K/uL (0.0-1.0); MONOCYTES % (AUTO) 7.2 % (1.7-9.3); NEUTROPHILS # (AUTO) 8.9 K/uL (1.8-7.7); NEUTROPHILS % (AUTO) 88.2 % (40.0-70.0); PLATELET COUNT (AUTO) 204 K/uL (130-430); RED BLOOD CELL COUNT(AUTO) 2.93 MIL/uL (4.2-6.2)
[2016-10-31] MEDS: chlordiazePOXIDE HCL 25 MG CAPSULE PO SCH ×3 (07:30→22:30)
[2016-10-31] MEDS ORDERED: SUCCINYLCHOLINE CHLORIDE 20 MG/ML(QUELICIN) ONE (08:00)
[2016-10-31] MEDS ORDERED: ETOMIDATE 20 MG/ 10 ML VIAL (AMIDATE) ONE (08:00)
--- NOTE | 2016-10-31 08:00 | NUR ---
AM Shift Assessment Received pt lethargic, responsive to tactile stimuli. Pt is intubated 7.5 cm, 23 cm lip line, connected to vent AC 18, TV 600, FiO2 50%, PEEP 5. Pt is on propofol 25 mcg/kg/min and levophed 12 mcg/min and D5 1/2 NS 75 ml/hr. Pt is in no acute distress, no signs of pain noted. IV sites intact, patent, no erythema noted. Noted generalized pitting edema and redness at skin folds, covered with z-guard. Michael in place draining yellow urine. Bilateral soft wrist restraints in place, no skin breakdown noted, pulses present. Bed in lowest position. Call light in reach. Will continue to monitor.
--- NOTE | 2016-10-31 08:00 | NUR ---
RT NOTE ETT PULLED BACK 1CM PER MD ORDER TO 23CM AT LIPLINE, NO RESP DISTRESS NTD. RN INFORMED
[2016-10-31] MEDS: ENOXAPARIN SODIUM 40 MG/0.4 ML SYRINGE SUBCUT SCH (08:18)
[2016-10-31 08:22] LABS: ABG TOTAL HEMOGLOBIN 10.6 G/dL (12.0-18.0); BLOOD GAS BASE EXCESS -2.8 mmol/L (-3.0-3.0); BLOOD GAS COHb% 0.2 % (0.5-1.5); BLOOD GAS HHB 2.9 % (0.0-6.0); BLOOD GAS PH 7.454 (7.350-7.450); BLOOD O2Hb% 96.5 % (94.0-97.0)
[2016-10-31] MEDS: FAMOTIDINE PF 20 MG/2 ML VIAL IVP SCH ×2 (08:22→22:30)
[2016-10-31] MEDS: NOREPINEPHRINE BITARTRATE 4 MG in NS 246 ML IV PRN ×2 (08:22→15:07)
[2016-10-31] MEDS: NICOTINE 14 MG/24 HR PATCH.TD24 TD SCH (08:29)
--- NOTE | 2016-10-31 09:35 | NUR ---
Diprivan Pt noted with increased agitation and kicking. Increased diprivan to 30 mcg/kg/min.
--- NOTE | 2016-10-31 14:00 | NUR ---
BP - 130/72 LEVOPHED TITRATED DOWN TO 6MCG/MIN
[2016-10-31] MEDS: LORazepam 2 MG/ML VIAL IVP PRN ×2 (14:19→22:31)
--- NOTE | 2016-10-31 15:00 | NUR ---
Levophed Pt's BP stable without support. SBP 136. Turned off levophed drip. Will continue to monitor.
--- NOTE | 2016-10-31 15:00 | NUR ---
Diprivan Pt with increased agitation, kicking, and swinging arms. Increased diprivan to 40 mcg/kg/min.
--- NOTE | 2016-10-31 15:35 | NUR ---
Dr. Espinoza in to see pt.
[2016-10-31] MEDS ORDERED: FUROSEMIDE 40 MG/4 ML VIAL IVP ONE (15:45)
[2016-10-31] MEDS ORDERED: MORPHINE 4 MG/ML INJ. SYRINGE IVP PRN (15:45)
--- NOTE | 2016-10-31 16:00 | NUR ---
PICC Line PICC line inserted to IRVIN by PICC line nurse. Obtained CXR for placement, per report, PICC line needs to be advanced 5 cm. Awaiting PICC line nurse to return.
[2016-10-31] MEDS: FOLIC ACID 1 MG, THIAMINE HCL 100 MG, MAGNESIUM SULFATE 1 GM, MVI 10 ML in NACL 0.9% 1,... IV SCH (17:10)
[2016-10-31] MEDS: MORPHINE 2 MG/ML INJ. SYRINGE IVP PRN (17:25)
[2016-10-31] MEDS: VANCOMYCIN HCL 1,500 MG in NS 250 ML IV SCH (17:35)
--- NOTE | 2016-10-31 17:40 | NUR ---
RT NOTE VENT CHANGE MADE AT THIS TIME, AC 14 AND FIO2 TITRATED DOWN TO 40% PER MD ORDER, RN INFORMED, NO RESP DISTRESS NTD
--- NOTE | 2016-10-31 18:30 | NUR ---
PICC Line Update PICC line fixed and verified with CXR and is okay for use.
--- NOTE | 2016-10-31 19:40 | NUR ---
Endorsement Endorsed plan of care to Renae NORTH.
--- NOTE | 2016-10-31 20:00 | NUR ---
ASSESSMENT Pt lethargic, orally intubated, tolerating current vent settings. Ogt was pulled out by pt, and reinserted after one attempt, orally with fr 18. Placement checked by irrigating tube. PICC line present right upper arm, dressing dry and intact. Michael cath in use, draining caio color urine. IV sites present right forearm 20ga and left wrist 20ga, no redness or swelling noted @ sites. Skin intact. Low air loss mattress in use. pt on Levophed and Diprivan drips.
[2016-10-31] MEDS: DIPHENHYDRAMINE INJ 50 MG/ML VIAL IVP PRN (22:30)
[2016-11-01] VITALS (35 sets, daily range): BP systolic 95–132; BP diastolic 52–79; PULSE 59–91; RESP 14–34; TEMP 97.2–98.7; O2SAT 94–100
[2016-11-01] MEDS: PROPOFOL DRIP 100 ML IV PRN ×6 (01:51→22:53)
[2016-11-01] MEDS: methylPREDNISolone SOD SUCC 40 MG/ML VIAL IVP SCH ×3 (03:30→20:02)
[2016-11-01] MEDS: PIPERACILLIN/TAZO 4.5GM/DEX-IS 100 ML IV SCH ×3 (03:31→20:02)
[2016-11-01] MEDS: VANCOMYCIN HCL 1,500 MG in NS 250 ML IV SCH ×2 (05:37→16:29)
[2016-11-01] MEDS: NACL 0.9% 1,000 ML IV SCH (05:42)
[2016-11-01] MEDS: LORazepam 2 MG/ML VIAL IVP PRN ×2 (05:59→21:13)
[2016-11-01] MEDS: INSULIN REGULAR, HUMAN 100 UNITS/ML, 10 ML VIAL (novoLIN R) SUBCUT PRN ×3 (06:00→17:22)
--- NOTE | 2016-11-01 06:00 | NUR ---
IV 20ga right arm and 20ga left wrist discontinued.
[2016-11-01 06:51] LABS: BASOPHILS % (AUTO) 0.4 % (0.0-2.0); EOSINOPHILS % (AUTO) 0.1 % (0.0-4.0); HEMOGLOBIN 8.5 g/dL (12.0-16.0); LYMPHOCYTES # (AUTO) 0.5 K/uL (1.0-5.5); LYMPHOCYTES % (AUTO) 6.7 % (20.5-51.5); MEAN CORPUSCULAR HEMOGLOBIN 30 pg (27-31); MEAN CORPUSCULAR HGB CONC 33 % (32-36); MEAN CORPUSCULAR VOLUME 93 fL (79.0-98.0); MONOCYTES # (AUTO) 0.3 K/uL (0.0-1.0); MONOCYTES % (AUTO) 4.9 % (1.7-9.3); NEUTROPHILS # (AUTO) 6.3 K/uL (1.8-7.7); NEUTROPHILS % (AUTO) 87.9 % (40.0-70.0); PLATELET COUNT (AUTO) 154 K/uL (130-430); WHITE BLOOD COUNT (AUTO) 7.1 K/uL (4.8-10.8)
--- NOTE | 2016-11-01 07:20 | NUR ---
[place] of care Received report from outgoing RN. Pt resting in bed with Diprivan drip. On ETT without SOB. No sign of pain. Will continue to monitor.
[2016-11-01 07:24] LABS: CALCIUM 8.8 mg/dL (8.4-11.0); CREATININE 1.38 mg/dL (0.55-1.30); TOTAL BILIRUBIN 0.9 mg/dL (0.0-1.0); TOTAL PROTEIN, SERUM 7.9 g/dL (6.4-8.3)
[2016-11-01] MEDS: IPRATROPIUM/ALBUTEROL SULFATE 3 ML AMPUL.NEB INH SCH ×5 (07:37→23:29)
[2016-11-01 08:13] LABS: ABG TOTAL HEMOGLOBIN 9.3 G/dL (12.0-18.0); BLOOD GAS BASE EXCESS -0.1 mmol/L (-3.0-3.0); BLOOD GAS COHb% 0.3 % (0.5-1.5); BLOOD GAS HHB 2.3 % (0.0-6.0); BLOOD GAS PH 7.442 (7.350-7.450); BLOOD O2Hb% 97.2 % (94.0-97.0)
[2016-11-01] MEDS: FAMOTIDINE PF 20 MG/2 ML VIAL IVP SCH ×2 (08:15→21:14)
[2016-11-01] MEDS: chlordiazePOXIDE HCL 25 MG CAPSULE PO SCH ×3 (08:15→21:13)
[2016-11-01] MEDS: ENOXAPARIN SODIUM 40 MG/0.4 ML SYRINGE SUBCUT SCH (08:15)
[2016-11-01] MEDS: NICOTINE 14 MG/24 HR PATCH.TD24 TD SCH (08:16)
--- NOTE | 2016-11-01 12:00 | NUR ---
Nursing Update Resting in bed. No SOB. Same vent settings. No injury on restraints. Will continue to monitor.
--- NOTE | 2016-11-01 17:00 | NUR ---
Transferred to bariatric bed Transferred pt to bariatric bed with the help of 4 nurses. No injury. NO SOB. Will continue to monitor.
[2016-11-01] MEDS: FOLIC ACID 1 MG, THIAMINE HCL 100 MG, MAGNESIUM SULFATE 1 GM, MVI 10 ML in NACL 0.9% 1,... IV SCH (17:20)
--- NOTE | 2016-11-01 18:00 | NUR ---
Called dietary to follow up on Gordo TYLER
--- NOTE | 2016-11-01 19:20 | NUR ---
PM SHIFT ASSESSMENT Pt lying in bed, opens eyes spontaneously. Unable to make most needs known r/t ETT, able to nod yes or no at times. Pt is on bilateral wrist restraints, skin is intact. Pt is on Dipprivan @ 40ml/hr and tolerating well. PICC to IRVIN, double lumen, IVF infusing. SR noted on monitor. Pt is intubated ETT 7.5, 22 LL and tolerating vent settings well. OG tube is noted and clamped at this time, later to be used for tube feeding. Skin is intact. Michael catheter draining caio urine to gravity. Safety measures are in place, call light is within reach. Will continue to monitor.
--- NOTE | 2016-11-01 19:30 | NUR ---
Report given to MARY ANNE Macdonald and endorsed all care
--- NOTE | 2016-11-01 20:00 | NUR ---
ASSESSMENT Pt alert, hitting hand against bed rail. Pt orally intubated tolerating current vent settings. PICC line present right upper arm, no redness or swelling noted @ site. Pt on Diprivan drip. Michael cath in use draining caio color urine. Bilateral wrist restraints in use, Pt unable to follow directions. Skin intact, low air loss mattress in use.
[2016-11-01] MEDS: DIPHENHYDRAMINE INJ 50 MG/ML VIAL IVP PRN (21:13)
[2016-11-02] VITALS (35 sets, daily range): BP systolic 82–133; BP diastolic 39–75; PULSE 63–87; RESP 14–32; TEMP 97.3–98.6; O2SAT 94–100
[2016-11-02] MEDS: PROPOFOL DRIP 100 ML IV PRN ×7 (01:40→21:59)
[2016-11-02] MEDS: methylPREDNISolone SOD SUCC 40 MG/ML VIAL IVP SCH ×3 (03:12→18:33)
[2016-11-02] MEDS: PIPERACILLIN/TAZO 4.5GM/DEX-IS 100 ML IV SCH ×3 (03:13→19:31)
[2016-11-02] MEDS ORDERED: VANCOMYCIN HCL 500 MG/VIAL IV ONE (05:41)
[2016-11-02] MEDS ORDERED: VANCOMYCIN HCL 1000 MG/VIAL IV ONE (05:41)
[2016-11-02] MEDS: VANCOMYCIN HCL 1,500 MG in NS 250 ML IV SCH ×2 (05:57→15:31)
[2016-11-02] MEDS: INSULIN REGULAR, HUMAN 100 UNITS/ML, 10 ML VIAL (novoLIN R) SUBCUT PRN ×4 (06:12→20:46)
[2016-11-02 06:47] LABS: BASOPHILS % (AUTO) 0.2 % (0.0-2.0); HEMATOCRIT 27.6 % (36-48); HEMOGLOBIN 9.1 g/dL (12.0-16.0); LYMPHOCYTES # (AUTO) 0.3 K/uL (1.0-5.5); MEAN CORPUSCULAR HEMOGLOBIN 31 pg (27-31); MEAN CORPUSCULAR HGB CONC 33 % (32-36); MEAN CORPUSCULAR VOLUME 94 fL (79.0-98.0); MONOCYTES # (AUTO) 0.3 K/uL (0.0-1.0); MONOCYTES % (AUTO) 4.2 % (1.7-9.3); NEUTROPHILS # (AUTO) 6.3 K/uL (1.8-7.7); NEUTROPHILS % (AUTO) 91.6 % (40.0-70.0); PLATELET COUNT (AUTO) 169 K/uL (130-430); RED BLOOD CELL COUNT(AUTO) 2.93 MIL/uL (4.2-6.2); RED CELL DISTRIBUTION WIDTH 18.5 % (9.0-15.0); WHITE BLOOD COUNT (AUTO) 6.9 K/uL (4.8-10.8)
[2016-11-02 07:08] LABS: CALCIUM 8.9 mg/dL (8.4-11.0); CREATININE 1.36 mg/dL (0.55-1.30); POTASSIUM 3.7 mmol/L (3.5-5.1); TOTAL BILIRUBIN 0.8 mg/dL (0.0-1.0); TOTAL PROTEIN, SERUM 8.1 g/dL (6.4-8.3)
[2016-11-02] MEDS: IPRATROPIUM/ALBUTEROL SULFATE 3 ML AMPUL.NEB INH SCH ×5 (07:11→23:27)
--- NOTE | 2016-11-02 07:30 | NUR ---
ENDORSEMENT Pt care was endorsed to MARY ANNE Estrella with nursing SBAR at bedside.
--- NOTE | 2016-11-02 07:40 | NUR ---
INITIAL NOTES RECEIVED PATIENT ON BED ASLEEP ;RESPONDS TO LIGHT STIMULI.BREATHING EVEN AND UNLABORED WITH ETT ATTACHED TO VENTILATOR MACHINE;TOLERATING SETTINGS WELL.WITH DOUBLE LUMEN PICC LINE TO RIGHT UPPER ARM;DRESSING INTACT.IVF INFUSING WELL;NO SIGNS AND SYMPTOMS OF INFILTRATION.WITH ONGOING DIPRIVAN DRIP AT 30 MCG/KG/MIN;STEPHENS SCALE=4.WITH OG TUBE FEEDING RUNNING AT 30ML/HR;TOLERATING WELL.WITH GONZALEZ CATHETER INTACT AND PATENT DRAINING LUIS URINE WITH SEDIMENTS.WITH BILATERAL SOFT RESTRAINTS ;SKIN INTACT .SAFETY AND FALL PRECAUTIONS IN PLACE.
[2016-11-02 07:52] LABS: ABG TOTAL HEMOGLOBIN 10.5 G/dL (12.0-18.0); BLOOD GAS BASE EXCESS -2.8 mmol/L (-3.0-3.0); BLOOD GAS COHb% 0.3 % (0.5-1.5); BLOOD GAS PH 7.451 (7.350-7.450); BLOOD O2Hb% 97.3 % (94.0-97.0)
[2016-11-02] MEDS: chlordiazePOXIDE HCL 25 MG CAPSULE PO SCH ×3 (08:16→20:40)
[2016-11-02] MEDS: FAMOTIDINE PF 20 MG/2 ML VIAL IVP SCH ×2 (08:16→20:39)
[2016-11-02] MEDS: NICOTINE 14 MG/24 HR PATCH.TD24 TD SCH (08:17)
[2016-11-02] MEDS: ENOXAPARIN SODIUM 40 MG/0.4 ML SYRINGE SUBCUT SCH (08:17)
[2016-11-02] MEDS: LORazepam 2 MG/ML VIAL IVP PRN (10:37)
[2016-11-02] MEDS: NACL 0.9% 1,000 ML IV SCH ×2 (10:39→15:26)
--- NOTE | 2016-11-02 11:30 | NUR ---
RT NOTES FIO2 TO 30% per Dr Sadler's order. No adverse reactions noted. Will monitor pt.
[2016-11-02] MEDS: DIPHENHYDRAMINE INJ 50 MG/ML VIAL IVP PRN (13:10)
--- NOTE | 2016-11-02 13:10 | NUR ---
Dr Fred Ibarra is here making rounds. Reported to MD that pt has episodes of BP going to 84-89's with that immediately resolves if we decreased the diprivan. However pt gets easily agitated once we decreased Diprivan. ordered NS bolus 250ml now. Will continue to monitor pt. Kept safe.
[2016-11-02] MEDS: MORPHINE 2 MG/ML INJ. SYRINGE IVP PRN (13:16)
[2016-11-02] MEDS ORDERED: NS 250 ML IV ONE (13:30)
[2016-11-02] MEDS ORDERED: NS 250 ML IV PRN (13:30)
--- NOTE | 2016-11-02 14:23 | NUR ---
Dr. Ibarra paged To report that BP 82/39 then 88/45 after bolus.
[2016-11-02] MEDS ORDERED: NS 500 ML IV ONE (14:45)
--- NOTE | 2016-11-02 14:51 | NUR ---
BP = 82/39 Dr. Viktoriya Sadler made aware that pt's BP = 82/39. NS 500 ml bolus ordered and given.
--- NOTE | 2016-11-02 15:20 | NUR ---
Dr. Ibarra called back MAde aware that I already spoke with Dr. Sadler and updated re: pt's BP and bolus. Dr. Ibarra gave a standing order for Levophed. Current BP 103/52. Responded well to IV bolus. Will continue to monitor.
[2016-11-02] MEDS ORDERED: NOREPINEPHRINE BITARTRATE 8 MG in NS 242 ML IV PRN (15:45)
[2016-11-02] MEDS: FOLIC ACID 1 MG, THIAMINE HCL 100 MG, MAGNESIUM SULFATE 1 GM, MVI 10 ML in NACL 0.9% 1,... IV SCH (17:18)
--- NOTE | 2016-11-02 17:45 | NUR ---
Levophed Initiated Started pt on Levophed 2mcg/min for SBP 86/43. Will continue to monitor.
--- NOTE | 2016-11-02 19:20 | NUR ---
PM SHIFT ASSESSMENT Pt is lying in bed resting with eyes closed, no s/s of distressed noted. Pt is unable to make needs known at this time, pt is sedated on Dipravan @ 35 mcg/kg/min. Pt is intubated size 7.5, 22 @ LL and tolerating vent settings well. No respiratory distress noted. SR noted on monitor. Bilateral wrist restraints in use, to prevent disruption of medical care because pt is unable to follow direction, skin is intact. PICC line to IRVIN, double lumen, no redness, dressing is clean, dry and intact, IVF infusing. Pt has OG tube, feeding at 30ml/hr, residual of 5ml. Michael catheter draining yellow urine to gravity. Skin is intact. Safety measures are in place, call light within reach. Will continue to monitor.
--- NOTE | 2016-11-02 20:10 | NUR ---
ROUNDS Pt's family is at bedside. Will continue to monitor.
--- NOTE | 2016-11-02 20:30 | NUR ---
ROUNDS Family at bedside, sisters stated they were taking pt's purse home with them.
[2016-11-03] VITALS (31 sets, daily range): BP systolic 82–124; BP diastolic 40–93; PULSE 67–92; RESP 12–29; TEMP 97.1–98.6; O2SAT 94–100
[2016-11-03] MEDS: NACL 0.9% 1,000 ML IV SCH ×3 (00:57→12:09)
[2016-11-03] MEDS: PROPOFOL DRIP 100 ML IV PRN ×3 (01:26→11:00)
[2016-11-03] MEDS: MORPHINE 2 MG/ML INJ. SYRINGE IVP PRN (01:27)
[2016-11-03] MEDS: LORazepam 2 MG/ML VIAL IVP PRN ×3 (03:18→23:42)
[2016-11-03] MEDS: PIPERACILLIN/TAZO 4.5GM/DEX-IS 100 ML IV SCH ×3 (03:21→19:27)
[2016-11-03] MEDS: methylPREDNISolone SOD SUCC 40 MG/ML VIAL IVP SCH ×3 (03:22→21:23)
[2016-11-03] MEDS: IPRATROPIUM/ALBUTEROL SULFATE 3 ML AMPUL.NEB INH SCH ×5 (03:26→23:23)
[2016-11-03 06:34] LABS: BASOPHILS % (AUTO) 0.5 % (0.0-2.0); EOSINOPHILS % (AUTO) 0.6 % (0.0-4.0); HEMATOCRIT 26.3 % (36-48); HEMOGLOBIN 8.6 g/dL (12.0-16.0); LYMPHOCYTES # (AUTO) 0.3 K/uL (1.0-5.5); LYMPHOCYTES % (AUTO) 3.8 % (20.5-51.5); MEAN CORPUSCULAR HEMOGLOBIN 30 pg (27-31); MEAN CORPUSCULAR HGB CONC 33 % (32-36); MEAN CORPUSCULAR VOLUME 93 fL (79.0-98.0); MONOCYTES # (AUTO) 0.5 K/uL (0.0-1.0); MONOCYTES % (AUTO) 7.2 % (1.7-9.3); NEUTROPHILS # (AUTO) 5.9 K/uL (1.8-7.7); NEUTROPHILS % (AUTO) 87.9 % (40.0-70.0); PLATELET COUNT (AUTO) 199 K/uL (130-430); RED BLOOD CELL COUNT(AUTO) 2.82 MIL/uL (4.2-6.2); RED CELL DISTRIBUTION WIDTH 18.5 % (9.0-15.0); WHITE BLOOD COUNT (AUTO) 6.7 K/uL (4.8-10.8)
[2016-11-03 06:45] LABS: CALCIUM 8.5 mg/dL (8.4-11.0); CREATININE 1.52 mg/dL (0.55-1.30); TOTAL BILIRUBIN 0.9 mg/dL (0.0-1.0); TOTAL PROTEIN, SERUM 7.6 g/dL (6.4-8.3)
[2016-11-03] MEDS: INSULIN REGULAR, HUMAN 100 UNITS/ML, 10 ML VIAL (novoLIN R) SUBCUT PRN ×4 (06:52→21:45)
[2016-11-03 07:13] LABS: ABG TOTAL HEMOGLOBIN 10.3 G/dL (12.0-18.0); BLOOD GAS BASE EXCESS -3.8 mmol/L (-3.0-3.0); BLOOD GAS PH 7.408 (7.350-7.450)
[2016-11-03 07:16] LABS: BLOOD GAS COHb% 0.4 % (0.5-1.5); BLOOD GAS HHB 3.5 % (0.0-6.0); BLOOD O2Hb% 95.7 % (94.0-97.0)
--- NOTE | 2016-11-03 07:30 | NUR ---
ENDORSEMENT Endorsed pt care to MARY ANNE Torres using nursing SBAR at bedside.
--- NOTE | 2016-11-03 07:30 | NUR ---
ENDORSEMENT Endorsed pt care to MARY ANNE Torres using nursing SBAR at bedside.
--- NOTE | 2016-11-03 08:00 | NUR ---
AM ASSESSMENT. PT ON DIPRIVAN DRIP AT 20 MCG/KG/MIN, TEJ SCALE 4, WRISTS RESTRAINTS OFF AND ON, ONCE SHE OPENS HER EYES, SHE TRIED TO LEAN FORWARD, RE-ORIENTED PT TO HER SURROUNDINGS AND PURPOSE, ET TUBE INTACT, CONNECTED TO A VENTILATOR, ORAL CARE PROVIDED, SUCTIONED NEEDED, OGT TO FEEDING AT 35 ML PER HR.
[2016-11-03] MEDS: ENOXAPARIN SODIUM 40 MG/0.4 ML SYRINGE SUBCUT SCH (09:01)
[2016-11-03] MEDS: FAMOTIDINE PF 20 MG/2 ML VIAL IVP SCH ×2 (09:01→21:25)
[2016-11-03] MEDS: chlordiazePOXIDE HCL 25 MG CAPSULE PO SCH ×4 (09:01→21:24)
[2016-11-03] MEDS: NICOTINE 14 MG/24 HR PATCH.TD24 TD SCH (09:02)
--- NOTE | 2016-11-03 12:00 | NUR ---
rounds accucheck was done and no hypo hyperglycemic reaction noted. sleeping soundly at this time. turned and repositioned for comfort.
--- NOTE | 2016-11-03 12:30 | NUR ---
VENT PT HAD SELF EXTUBATED HERSELF, FINGER CLINGING AROUND THE SUCTION TUBING AND KEPT TUGGING IT DOWN, ORAL SUCTIONING DONE, E.Cata DOCTOR WAS CALLED AND CAME IN, HE SAID TO LEAVE PT ON O2, HEARD PT SAYING HER OWN NAME, O2 APPLIED BY R.T AT 4L VIA NASAL CANNULA, DR HODGSON (ANESTHESIOLOGIST) CAME IN WELL, WILL MONITOR PT.
--- NOTE | 2016-11-03 14:00 | NUR ---
rounds sleeping soundly at this time. with o2 at 4 liters via nasal cannula and sat is at 96%. no sob noted.
--- NOTE | 2016-11-03 16:00 | NUR ---
rounds pt gets restless at times and then goes to sleep. stable will continue to monitor patient.
--- NOTE | 2016-11-03 16:25 | NUR ---
1155 PT PLACED ON SIMV12, TV550 PS10 +[address] KIRK. PNL133%. 1230 PT SELF EXTUBATED AND PLACED ON 4L NASAL CANNULA PER . PT SAT96% RR 21. NO DISTRESS NOTED. Addendum: 11/03/16 at 1627 by Michelle Franco RT Amended: Links added.
[2016-11-03] MEDS: FOLIC ACID 1 MG, THIAMINE HCL 100 MG, MAGNESIUM SULFATE 1 GM, MVI 10 ML in NACL 0.9% 1,... IV SCH (17:00)
--- NOTE | 2016-11-03 18:00 | NUR ---
BEHAVIOR. PT HOSTILE TO STAFF, KICKING AND PULLING HER GONZALEZ CATHETER WHILE IN BED, HYGIENE PROVIDED, 3 STAFF REQUIRED, GONZALEZ CATHETER INTACT, WILL CONTINUE TO MONITOR.
[2016-11-03] MEDS: VANCOMYCIN HCL 1,500 MG in NS 250 ML IV SCH (18:05)
--- NOTE | 2016-11-03 18:30 | NUR ---
closing notes pt is asleep at this time.. no sob noted , saturation is 97%. bed in low position and side rails up and locked. geoffrey restraints in place. needs attended and stable.
--- NOTE | 2016-11-03 19:30 | NUR ---
PM SHIFT ASSESSMENT Pt is restless in bed, eyes open and talking. Pt is confused, alert to self and place only. NC @ 4L, no respiratory distress noted. SR noted on monitor. Bilateral wrist restraints in use, to prevent disruption of medical care because pt is unable to follow direction, skin is intact. PICC line to IRVIN, double lumen, no redness, dressing is clean, dry and intact, IVF infusing. Michael catheter draining yellow urine to gravity. Skin is intact. Safety measures are in place, call light within reach. Will continue to monitor.
--- NOTE | 2016-11-03 22:40 | NUR ---
Spoke to Dr. Acosta over the phone regarding diet. Diet is now REGULAR. Orders carried out.
[2016-11-04] VITALS (29 sets, daily range): BP systolic 94–131; BP diastolic 42–81; PULSE 69–82; RESP 10–30; TEMP 97.1–97.8; O2SAT 95–100
[2016-11-04] MEDS: LORazepam 2 MG/ML VIAL IVP PRN ×4 (01:39→06:47)
[2016-11-04] MEDS: FOLIC ACID 1 MG, THIAMINE HCL 100 MG, MAGNESIUM SULFATE 1 GM, MVI 10 ML in NACL 0.9% 1,... IV SCH (01:49)
[2016-11-04] MEDS: PIPERACILLIN/TAZO 4.5GM/DEX-IS 100 ML IV SCH ×3 (02:06→18:44)
--- NOTE | 2016-11-04 02:20 | NUR ---
ROUNDS Pt is restless, confused, has not slept and trying to pull medical equipment out. Ativan is given per MD order.
[2016-11-04] MEDS: IPRATROPIUM/ALBUTEROL SULFATE 3 ML AMPUL.NEB INH SCH ×6 (03:23→23:00)
[2016-11-04] MEDS: NACL 0.9% 1,000 ML IV SCH ×2 (05:51→21:09)
[2016-11-04] MEDS: INSULIN REGULAR, HUMAN 100 UNITS/ML, 10 ML VIAL (novoLIN R) SUBCUT PRN ×4 (06:39→21:21)
[2016-11-04 06:52] LABS: BASOPHILS % (AUTO) 0.1 % (0.0-2.0); HEMATOCRIT 24.7 % (36-48); HEMOGLOBIN 8.2 g/dL (12.0-16.0); LYMPHOCYTES # (AUTO) 0.2 K/uL (1.0-5.5); MEAN CORPUSCULAR HEMOGLOBIN 31 pg (27-31); MEAN CORPUSCULAR HGB CONC 33 % (32-36); MEAN CORPUSCULAR VOLUME 93 fL (79.0-98.0); MONOCYTES # (AUTO) 0.5 K/uL (0.0-1.0); MONOCYTES % (AUTO) 6.9 % (1.7-9.3); NEUTROPHILS # (AUTO) 7.1 K/uL (1.8-7.7); PLATELET COUNT (AUTO) 158 K/uL (130-430); RED BLOOD CELL COUNT(AUTO) 2.65 MIL/uL (4.2-6.2); RED CELL DISTRIBUTION WIDTH 18.3 % (9.0-15.0); WHITE BLOOD COUNT (AUTO) 7.8 K/uL (4.8-10.8)
[2016-11-04 07:16] LABS: ALBUMIN 2.7 g/dL (3.4-4.8); CALCIUM 7.9 mg/dL (8.4-11.0); CREATININE 1.18 mg/dL (0.55-1.30); POTASSIUM 3.7 mmol/L (3.5-5.1); TOTAL BILIRUBIN 0.9 mg/dL (0.0-1.0); TOTAL PROTEIN, SERUM 6.7 g/dL (6.4-8.3)
--- NOTE | 2016-11-04 07:18 | NUR ---
ENDORSEMENT Pt care was endorsed to MARY ANNE Torres using nursing SBAR at bedside.
--- NOTE | 2016-11-04 08:00 | NUR ---
AM ASSESSMENT. PT SLEEPING WHEN APPROACHED, BREATHING REGULAR, ON O2 VIA NASAL CANNULA, VITAL SIGNS STABLE, WBC 7.8, BROUGHT IN BREAKFAST TRAY, PT NOT INTERESTED, WENT TO SLEEP AGAIN, WILL CONTINUE TO MONITOR.
[2016-11-04 08:12] LABS: ABG TOTAL HEMOGLOBIN 9.6 G/dL (12.0-18.0); BLOOD GAS BASE EXCESS -2.7 mmol/L (-3.0-3.0); BLOOD GAS COHb% 0.1 % (0.5-1.5); BLOOD GAS PH 7.321 (7.350-7.450); BLOOD O2Hb% 93.5 % (94.0-97.0)
[2016-11-04] MEDS: methylPREDNISolone SOD SUCC 40 MG/ML VIAL IVP SCH ×2 (08:55→21:09)
[2016-11-04] MEDS: FAMOTIDINE PF 20 MG/2 ML VIAL IVP SCH (08:55)
[2016-11-04] MEDS: NICOTINE 14 MG/24 HR PATCH.TD24 TD SCH (08:56)
[2016-11-04] MEDS: chlordiazePOXIDE HCL 25 MG CAPSULE PO SCH (08:56)
[2016-11-04] MEDS: ENOXAPARIN SODIUM 40 MG/0.4 ML SYRINGE SUBCUT SCH (08:56)
[2016-11-04] MEDS ORDERED: HALOPERIDOL LACTATE 5 MG/ML VIAL IVP PRN (09:00)
--- NOTE | 2016-11-04 09:00 | NUR ---
CONSULT. PT SEEN BY DR ELLIS, PT DIFFICULT TO AROUSE TO VERBAL AND TACTILE STIMULI, WILL USE BIPAP PER MD.
--- NOTE | 2016-11-04 09:07 | NUR ---
O2. WENT TO TALK TO PT , R.T. AT BEDSIDE, PT RESPONDING TO VERBAL STIMULI, BARELY OPENING HER EYES, DR ELLIS CAME BACK, BIPAP ON STAND BY, WILL CONTINUE TO MONITOR, ATIVAN DISCONTINUED.
--- NOTE | 2016-11-04 11:35 | NUR ---
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 Bedscale wt: 326 lb, wt gain likely d/t fluid retention and lack of bowel movement. Per EMR, pt exhibits generalized non-pitting edema, visualized by events intern. No physical signs of malnutrition seen per visual assessment. GI Integrity: Per EMR, abdomen is soft and non-distended with active bowel sounds. Last BM on 10/30. No BM today per RN. PO Intakes: Pt started on regular, low fat diet today after extubation. Per RN, pt was previously receiving and tolerating EN from 11/01-11/03 d/t intubation and sedation. No recent PO records yet. Plans/Procedures: Per pulmonary consult (11/01), continue IV abx, nebulizer treatments, and IV steroids; lasix PRN. Pt was weaned off of propofol yesterday. Per RN, if breathing worsens, pt will be put on BiPAP. Current diet is adequate and appropriate. Pt is not appropriate for nutrition education. F/U on food allergies and home diet if possible during next RD visit. Current Diet Order/Nutrition Support Regular, Low Fat (x0 days) Patient/Significant Other Unable To Verbalize Education Provided Not Indicated Pertinent Medications Reviewed Pertinent Labs Reviewed Height (Feet) 5 feet Height (Inches) 7.00 inches Weight (Pounds) 315 pounds (admission) 11/04/16: 326 lb, 148 kg (bedscale); likely inflated d/t generalized edema Weight (Calculated Kilograms) 142.479266 kilograms Patient Weight 142.882 kg Body Mass Index 51.2 kg/m2 (obesity class III) %IBW [address]/Adjusted Body Weight IBW: 135 lb (61 kg); Adjusted IBW (obesity class III): 180 lb (82 kg) Recent Weight Change Unknown Weight Status Morbidly Obese Gastrointestinal Symptoms None Last BM Oct 30, 2016 Food Allergies Unknown Usual Diet At Home Unknown Skin Integrity Comment: Per EMR, Pranav score: 15. No skin issues noted, no open wounds per RN. Current % PO No current PO records Estimated Energy Expenditure (kcals/day) 6616-8757 kcal/day (BEE x 1-1.2 for maintenence) Estimated Protein Required (g/day) 49-61 gm/day (0.8-1 gm/kg IBW for maintenance) Estimated Fluid Required (l/day) 2.1-2.5 L/day (1 ml/kcal for maintenance) Problem/Etiology/Signs/Symptoms (modified) Obesity related to self-monitoring deficit as evidenced by BMI 51.2 and 241% of IBW *ongoing Expected Outcomes/Goals 1. Meet at least 50% of estimated needs with acceptable tolerance 2. Labs trending within normal limits 3. Weight maintenance 4. Maintain skin integrity 5. Improved GI function, normal bowel movements Dietitian Recommendations * Continue regular, low fat diet per MD order * Recommend stool softener as pt has not had a BM for 5 days Follow Up High Risk: F/U in 2-3 days Alert Indicated Risk of Malnutrition Related to Morbid Obesity BMI> or equal to 40 Yes Malnutrition Recommendations by SARAH Dietary Education by SARAH Addendum: 11/04/16 at [address] SARAH reviewed/approved internal salesperson's note. SABA, RD
--- NOTE | 2016-11-04 12:00 | NUR ---
LOC. PT ASLEEP AND EASILY AWAKENED, GUIDED PT TO LIFT HERSELF UP IN BED, PT ABLE TO FOLLOW SIMPLE COMMANDS, NO SHORTNESS OF BREATH, MAINTAINED 02 VIA NASAL CANNULA AT 4 L PER MIN. SUPERVISED AT LUNCH TIME, TOOK FEW SIPS OF GARCIA SOUP AND HAD 2 PIECES OF BOW TIE PASTA.
--- NOTE | 2016-11-04 15:30 | NUR ---
PRANAV SCALE EVALUATION: Patient evaluated for a low Pranav score of 15. Patient was awake, alert, oriented, extubated yesterday, and received in a [facility] bariatric bed with a low air-loss mattress. Patient is unable to turn independently. Skin is fair. Recommend reposition patient side to side only every 2 hours with pillow support and off-load pressure areas with pillows for pressure re-distribution. Elevate, off-load and float bilateral heels with pillows. Use moisture barrier cream on buttocks and other moisture susceptible areas QID and as needed for soiling. Perform skin care and monitor skin integrity Q shift.
[2016-11-04] MEDS: VANCOMYCIN HCL 1,500 MG in NS 250 ML IV SCH (15:37)
--- NOTE | 2016-11-04 15:40 | NUR ---
HYGIENE. PT MORE RESPONSIVE TO VERBAL COMMAND, REPOSITIONED FOR COMFORT, BOWEL INCONTINENT, GOOD PERINEAL HYGIENE RENDERED, LINEN CHANGED NEEDED.
--- NOTE | 2016-11-04 18:00 | NUR ---
DIET. PT'S SISTER AT BEDSIDE, SUPERVISED PT AT MEAL TIME, CAREFULLY FED PT, FAMILY ENCOURAGING, TOLERATED HER DIET.
--- NOTE | 2016-11-04 19:22 | NUR ---
OPENING NOTE Pt. and report received from day shift nurse. Pt. is resting in bed with no s/s of acute distress. Respirations are even and unlabored with visible chest rise. Pt.'s sister, Vandana at bedside. Both deny any needs at this time. Safety measures in place. Encouraged pt. and family to use call light for any needs. Will continue to monitor. Addendum: 11/04/16 at 2236 by Swati Marte RN OPENING NOTE Pt. and report received from day shift nurse. Pt. is resting in bed with no s/s of acute distress. Respirations are even and unlabored with visible chest rise on 4L o2 nasal cannula, o2 sat at 99%. Right upper PICC line is CDI infusing IVF at this time. Michael catheter draining yellow urine by gravity. Low airloss mattress present and working well. Pt.'s sister, Vandana at bedside. Both deny any needs at this time. Safety measures in place. Pt. on bilateral soft wrist restraints due to forgetful and disruption in medical care. Encouraged pt. and family to use call light for any needs. Will continue to monitor.
--- NOTE | 2016-11-04 20:30 | NUR ---
BREATHING TX Late entry due to pt. care. Pt. received breathing tx from RT.
--- NOTE | 2016-11-04 21:40 | NUR ---
DUE MEDS/ACCUCHECK Due meds administered as ordered. Accucheck done, blood sugar 154, 2 units of regular insulin was administered per sliding scale order. See EMAR. Educated pt. regarding medications and s/e but pt. is forgetful. Safety measures are in place. Bed alarm on. No s/s of injury related to bilateral soft wrist restraints. Will continue to monitor.
--- NOTE | 2016-11-04 22:00 | NUR ---
RESTRAINTS Late entry due to pt. care. Pt. was educated regarding need for restrain use. Encouraged pt. not to pull on medical lines. Pt. verbalized she "explores" and requested for restraints to remain on. Will continue to monitor.
--- NOTE | 2016-11-04 23:30 | NUR ---
REQUESTED WATER Pt. requested cup of water. Tolerated well.
[2016-11-05] VITALS (26 sets, daily range): BP systolic 94–148; BP diastolic 43–81; PULSE 69–82; RESP 12–37; TEMP 97.4–98; O2SAT 92–100
[2016-11-05] MEDS: PIPERACILLIN/TAZO 4.5GM/DEX-IS 100 ML IV SCH ×3 (02:44→19:00)
--- NOTE | 2016-11-05 03:17 | NUR ---
CHG BATH Skin/lio/hurt cath/CHG bath given. Pt. tolerated well. Repositioned with pillows as support. Safety precautions in place. No s/s of injury to bilateral soft wrist restraints. Call light to right hand. Encouraged pt. to use call light for any needs but pt. is forgetful. Will continue to monitor.
[2016-11-05] MEDS: IPRATROPIUM/ALBUTEROL SULFATE 3 ML AMPUL.NEB INH SCH ×6 (04:07→23:10)
--- NOTE | 2016-11-05 04:17 | NUR ---
HALDOL Pt. very agitated calling staff "spies" and "aliens." Reoriented pt. to place and time. Pt. took off gown and is trying to pull on lines and equipment. Haldol IVP given as ordered. Educated pt. regarding medication and s/e but pt. is confused. Safety measures in place. No s/s of injury related to bilateral soft wrist restraints. VSS. Bed alarm on. Call light to right hand. Pt. currently receiving breathing tx from RT. Will continue to monitor.
--- NOTE | 2016-11-05 05:33 | NUR ---
LEADS AND PULSE OX FIXED/REQUESTED WATER Tele leads and pulse ox fixed; pt. verbally combative. Reorientation and deescalation measures done. Pt. stated she wanted her pillows to her side removed. Educated pt. regarding pillows and repositioning interventions. Pt. requested cup of water, tolerated well. Safety precautions in place. Call light to right hand. No s/s of injury related to bilateral soft wrist restraints. Will continue to monitor.
--- NOTE | 2016-11-05 06:27 | NUR ---
ACCUCHECK Blood sugar: 145. No insulin was given per sliding scale order. Reoriented pt. to place and time but is still confused and forgetful. Safety precautions in place. No s/s of injury related to bilateral soft wrist restraints. Will continue to monitor.
[2016-11-05 06:42] LABS: BASOPHILS % (AUTO) 0.1 % (0.0-2.0); EOSINOPHILS % (AUTO) 0.5 % (0.0-4.0); HEMATOCRIT 27.9 % (36-48); HEMOGLOBIN 9.3 g/dL (12.0-16.0); LYMPHOCYTES # (AUTO) 0.9 K/uL (1.0-5.5); LYMPHOCYTES % (AUTO) 10.6 % (20.5-51.5); MEAN CORPUSCULAR HEMOGLOBIN 31 pg (27-31); MEAN CORPUSCULAR HGB CONC 33 % (32-36); MEAN CORPUSCULAR VOLUME 93 fL (79.0-98.0); MONOCYTES # (AUTO) 0.7 K/uL (0.0-1.0); MONOCYTES % (AUTO) 8.4 % (1.7-9.3); NEUTROPHILS # (AUTO) 6.7 K/uL (1.8-7.7); NEUTROPHILS % (AUTO) 80.4 % (40.0-70.0); PLATELET COUNT (AUTO) 176 K/uL (130-430); RED CELL DISTRIBUTION WIDTH 18.5 % (9.0-15.0); WHITE BLOOD COUNT (AUTO) 8.3 K/uL (4.8-10.8)
[2016-11-05 06:43] LABS: CREATININE 1.33 mg/dL (0.55-1.30); POTASSIUM 3.8 mmol/L (3.5-5.1)
--- NOTE | 2016-11-05 06:46 | NUR ---
CLOSING NOTES All needs and safety precautions maintained throughout shift. IVF infusing to right upper arm PICC line. Respirations are even and unlabored on 3L o2 nasal cannula, o2 sat at 99%. VSS. Bilateral soft wrist restraints remain on due to pt.'s forgetfulness, pulling on medical lines and disruption of medical care. Michael catheter is intact, draining yellow urine by gravity. Call light to right hand. Will endorse care to oncoming day shift nurse.
--- NOTE | 2016-11-05 07:21 | NUR ---
REPORT GIVEN TO DAY SHIFT NURSE Bedside report given to MARY ANNE Haines using SBAR. RT at bedside obtaining ABG.
[2016-11-05 07:47] LABS: ABG TOTAL HEMOGLOBIN 10.3 G/dL (12.0-18.0); BLOOD GAS BASE EXCESS -2.8 mmol/L (-3.0-3.0); BLOOD GAS COHb% 0.3 % (0.5-1.5); BLOOD GAS HHB 2.7 % (0.0-6.0); BLOOD GAS PH 7.409 (7.350-7.450); BLOOD O2Hb% 96.5 % (94.0-97.0)
--- NOTE | 2016-11-05 08:00 | NUR ---
Initial Note Patient A/O to name and ; slightly confused asking "who are the little green men?" Respirations even and unlabored. General weakness noted, no visible tremors at this time. Speech is garbled but able to make needs known. Restraints in place for patient safety. Released this morning for total of 25 minutes, patient began to pull on lines. Restraints put back into place. Television is on. Call light is in patient's hand. Fall and safety precautions in place.
[2016-11-05] MEDS: NICOTINE 14 MG/24 HR PATCH.TD24 TD SCH (09:20)
[2016-11-05] MEDS: methylPREDNISolone SOD SUCC 40 MG/ML VIAL IVP SCH (09:20)
[2016-11-05] MEDS: ENOXAPARIN SODIUM 40 MG/0.4 ML SYRINGE SUBCUT SCH (09:21)
--- NOTE | 2016-11-05 10:27 | NUR ---
Notes Dr. Chaudhary has seen the patient. Informed him patient is alert and awake but exhibiting confusion. Also made him aware patient pulls on lines when restraints are released.
--- NOTE | 2016-11-05 11:25 | NUR ---
Notes Spoke with Gustavo from Pharmacy in regards to scheduled vanco. He is aware of last through,stated dose has been adjusted and vanco is safe to give.
[2016-11-05] MEDS: NACL 0.9% 1,000 ML IV SCH (11:55)
[2016-11-05] MEDS: INSULIN REGULAR, HUMAN 100 UNITS/ML, 10 ML VIAL (novoLIN R) SUBCUT PRN ×2 (11:59→21:59)
[2016-11-05] MEDS ORDERED: HALOPERIDOL LACTATE 5 MG/ML VIAL IVP PRN (13:15)
--- NOTE | 2016-11-05 13:41 | NUR ---
Notes Patient able to eat lunch with partial assistance. Seated upright. No aspiration noted. Good oral intake.
--- NOTE | 2016-11-05 14:50 | NUR ---
Notes Patient exhibiting agitation and pulling on lines, Haldol administered per MD orders.
[2016-11-05] MEDS: VANCOMYCIN HCL 1,500 MG in NS 250 ML IV SCH (16:48)
--- NOTE | 2016-11-05 16:52 | NUR ---
Notes Patient sleeping.No respiratory distress noted. Vital signs stable, O2 96% at this time.Nasal canula in place while patient is resting.
[2016-11-05] MEDS: FOLIC ACID 1 MG, THIAMINE HCL 100 MG, MAGNESIUM SULFATE 1 GM, MVI 10 ML in NACL 0.9% 1,... IV SCH (17:45)
--- NOTE | 2016-11-05 17:54 | NUR ---
Notes Patient sleeping. Easily awoken but returns to sleep quickly. Will not administer Insulin at this time due to patient's inability to remain awake to eat.
--- NOTE | 2016-11-05 19:31 | NUR ---
Closing Notes Patient awake. Repositioned up in bed. Patient care endorsed to oncoming shift nurse.
--- NOTE | 2016-11-05 20:00 | NUR ---
ASSESSMENT Pt alert, oriented to self, pt confused about events leading up today. Pt oriented to events leading to today. Pt became teary eyed. Pt tolerated apple sauce and water. Pt is having fine tremors with movements of upper extremities. PICC line present right upper arm. No redness or swelling noted @ site. Michael cath in use draining clear yellow urine. Low air loss mattress in use, bed in low position & locked.
[2016-11-05] MEDS: ACETAMINOPHEN 325 MG TABLET PO PRN (23:37)
[2016-11-06] VITALS (16 sets, daily range): BP systolic 96–154; BP diastolic 42–93; PULSE 27–85; RESP 10–28; TEMP 97.1–98.5; O2SAT 94–100
--- NOTE | 2016-11-06 | NUR ---
ASSESSMENT Pt becoming more aware of environment, asking for cell phone, and watching TV. Speech is slightly slurred, but more appropriate.
[2016-11-06] MEDS: IPRATROPIUM/ALBUTEROL SULFATE 3 ML AMPUL.NEB INH SCH ×4 (03:36→16:05)
[2016-11-06] MEDS: PIPERACILLIN/TAZO 4.5GM/DEX-IS 100 ML IV SCH ×4 (05:34→22:13)
[2016-11-06 06:24] LABS: BASOPHILS % (AUTO) 0.2 % (0.0-2.0); EOSINOPHILS # (AUTO) 0.2 K/uL (0.0-0.4); EOSINOPHILS % (AUTO) 2.3 % (0.0-4.0); HEMATOCRIT 26.8 % (36-48); HEMOGLOBIN 8.8 g/dL (12.0-16.0); LYMPHOCYTES # (AUTO) 1.4 K/uL (1.0-5.5); LYMPHOCYTES % (AUTO) 17.7 % (20.5-51.5); MEAN CORPUSCULAR HEMOGLOBIN 30 pg (27-31); MEAN CORPUSCULAR HGB CONC 33 % (32-36); MEAN CORPUSCULAR VOLUME 92 fL (79.0-98.0); MONOCYTES # (AUTO) 0.6 K/uL (0.0-1.0); MONOCYTES % (AUTO) 7.3 % (1.7-9.3); NEUTROPHILS # (AUTO) 5.7 K/uL (1.8-7.7); NEUTROPHILS % (AUTO) 72.5 % (40.0-70.0); PLATELET COUNT (AUTO) 177 K/uL (130-430); RED BLOOD CELL COUNT(AUTO) 2.92 MIL/uL (4.2-6.2); RED CELL DISTRIBUTION WIDTH 18.3 % (9.0-15.0); WHITE BLOOD COUNT (AUTO) 7.9 K/uL (4.8-10.8)
[2016-11-06 06:30] LABS: CALCIUM 8.9 mg/dL (8.4-11.0); CREATININE 1.08 mg/dL (0.55-1.30); POTASSIUM 3.6 mmol/L (3.5-5.1)
--- NOTE | 2016-11-06 08:22 | NUR ---
DR KEARNS AT BEDSIDE FOR EXAM, ORDERS RECEIVED AND CARRIED OUT
--- NOTE | 2016-11-06 08:51 | NUR ---
PT EATING BREAKFAST WELL, NO PROBLEMS WITH SWALLOWING. PT AAO4, DENIES NAY SOB OR CP. ALSO NOTED THAT PT'S ISTER GAVE HER COOKIES, PT HID THEM FROM ME AT FIRST. NO DIFFICULTIES IN CHEWING THEM. INFORMED PT THATHER DIET WAS FULL LIQUID DIET, VERBALIZED UNDERSTANDING. STATES "IM HUNGRY, IM OK TO EAT". CLARIFICATION AGAIN.
[2016-11-06] MEDS ORDERED: POTASSIUM CHLORIDE 20 MEQ TAB.PRT.SR PO ONE (09:00)
[2016-11-06] MEDS ORDERED: methylPREDNISolone SOD SUCC 40 MG/ML VIAL IVP SCH (09:00)
[2016-11-06] MEDS: THIAMINE HCL 100 MG TABLET PO SCH (09:00)
[2016-11-06] MEDS: ENOXAPARIN SODIUM 40 MG/0.4 ML SYRINGE SUBCUT SCH (09:11)
[2016-11-06] MEDS: NICOTINE 14 MG/24 HR PATCH.TD24 TD SCH (09:11)
--- NOTE | 2016-11-06 09:46 | NUR ---
PYSICAL THERAPY AT BESIDE FOR TREATMENT.
--- NOTE | 2016-11-06 10:20 | NUR ---
DR ROSA AT BEDSIDE FOR EXAM
--- NOTE | 2016-11-06 10:33 | NUR ---
RETORT FORKER ESPERANZA AT BEDSIDE,
--- NOTE | 2016-11-06 11:10 | NUR ---
RN NOTES PT. TRANSFERRED FROM ICU WITH NURSE AND MONITORED. AWAKE, ALERT AND ORIENTED. PT. ON AIR MATTRESS. PICC LINE ON RIGHT UPPER ARM,DOUBLE LUMEN CATH. CALL LIGHT WITHIN REACH. INSTRUCTED TO CALL NURSE FOR HELP.
--- NOTE | 2016-11-06 11:46 | NUR ---
REPORT GIVEN TO RODNEY NORTH, UPDATED ON STATUS, LABS AND VITALS. AWARE OF PENDING ORDERS. PT STABLE FOR TRANSFER . VSS. CN AWARE OF TRANSFER AND WAITING FOR ASSISTANCE TO TRANSFER.
--- NOTE | 2016-11-06 12:25 | NUR ---
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 Pt's sister at bedside. Per EMR and visual assessment, pt still exhibiting generalized 1+ pitting edema. Pt reported she lost 54 lb in the past year unintentionally, going from 369 lb to 315 lb d/t her diabetes medication (glipizide), decrease in alcohol intake, and increase in physical activity. GI Integrity: Per EMR, abdomen is soft with active bowel sounds. Last BM x1 on 11/04. Pt denies n/v. PO Intakes: Pt on CCHO, soft diet yesterday. PO records average 50% x3 meals. Per RN, pt had difficulty tolerating solid foods d/t mental status and lethargic state, pt was drooling. MD ordered full liquid diet for today for better tolerance. Since pt's mental status has improved and pt is tolerating full liquid diet and cookies, RN requesting that MD order solid food diet. Plans/Procedures: Per RN, pt to transfer to telemetry today. Current diet is no longer adequate or appropriate. Pt denied nutrition education at this time. Current Diet Order/Nutrition Support Full Liquid (x1 day) Patient/Significant Other Able To Verbalize Education Provided Not Indicated Pertinent Medications Reviewed Pertinent Labs Reviewed Height (Feet) 5 feet Height (Inches) 7.00 inches Weight (Pounds) 315 pounds (admission) 11/04/16: 326 lb, 148 kg (bedscale); likely inflated d/t generalized edema 11/06/16: unsure of how to weigh pt on bariatric bed. Weight (Calculated Kilograms) 142.212428 kilograms Patient Weight 142.882 kg Body Mass Index 51.2 kg/m2 (obesity class III) UBW 315 lb stated by pt %UBW 100 %IBW [address]/Adjusted Body Weight IBW: 135 lb (61 kg); Adjusted IBW (obesity class III): 180 lb (82 kg) Recent Weight Change 54 lb unintentional weight loss in the past year (15% weight change) Weight Status Morbidly Obese Gastrointestinal Symptoms None Last BM Nov 04, 2016 Food Allergies None per pt Usual Diet At Home Regular, unrestricted. Takes folic acid and vit D3 regularly Skin Integrity Comment: Per EMR, Pranav score: 14. Left lower abdomen bruise, L/R arm bruise, right elbow and right wrist rash, psoriasis Wound note (11/04/16, 1530): Skin is fair Current % PO 50% x3 meals on 11/05/16 Estimated Energy Expenditure (kcals/day) 9802-0456 kcal/day (BEE x 1-1.2 for maintenence) Estimated Protein Required (g/day) 49-61 gm/day (0.8-1 gm/kg IBW for maintenance) Estimated Fluid Required (l/day) 2.1-2.5 L/day (1 ml/kcal for maintenance) Problem/Etiology/Signs/Symptoms (modified) Obesity related to self-monitoring deficit as evidenced by BMI 51.2 and 241% of IBW *ongoing Expected Outcomes/Goals 1. Meet at least 50% of estimated needs with acceptable tolerance 2. Labs trending within normal limits 3. Weight maintenance 4. Improved skin integrity 5. Maintain normal GI function Dietitian Recommendations * Advance to CCHO, soft diet if/when medically appropriate * Monitor and encourage PO intakes at meal times Follow Up Moderate Risk: F/U in 3-5 days Alert Indicated Risk of Malnutrition Related to Morbid Obesity BMI> or equal to 40 Yes Malnutrition Recommendations by SARAH Dietary Education by SARAH SMITH reviewed/approved internet marketing specialist's note. SARAH WALTER. Addendum: 11/06/16 at [address] CORRECTIONS: 11/06/16: unable to weigh pt on bariatric bed; no bedscale available RD reviewed/approved internet marketing specialist's note. SABA, RD
--- NOTE | 2016-11-06 14:10 | NUR ---
RN NOTES PT. WANTS TO USE RESTROOM, NURSE RAINA AND OTHER STAFF ASSISTED HER TO THE RESTROOM WITH UNSTEADY GAIT.
--- NOTE | 2016-11-06 15:32 | NUR ---
PHYSICAL THERAPY CO-SIGN The Physical Therapy Progress Notes documented by Household Chores have been reviewed. I CONCUR W/RIGHT OF WAY MANAGER NOTE; CONT PER TX PLAN Reviewed/Co-Signed by: Elda Morse PT Documentation Done by: AMNA ALEGRIA RIGHT OF WAY MANAGER Addendum: 11/06/16 at 1533 by Elda Morse PT Amended: Links added.
--- NOTE | 2016-11-06 16:00 | NUR ---
RN NOTES PT. UP IN CHAIR WITH SISTER AT BEDSIDE. PT. NEEDS ATTENDED
[2016-11-06] MEDS: VANCOMYCIN HCL 1,500 MG in NS 250 ML IV SCH (16:38)
--- NOTE | 2016-11-06 18:30 | NUR ---
CLOSING NOTES PT. AWAKE, ALERT, ORIENTED, REMAIN SITTING UP IN CHAIR. IV INTACT, IV ANTIBIOTIC STILL INFUSING.
[2016-11-06] MEDS: INSULIN REGULAR, HUMAN 100 UNITS/ML, 10 ML VIAL (novoLIN R) SUBCUT PRN (18:33)
--- NOTE | 2016-11-06 19:15 | NUR ---
INITIAL ROUNDS RECVD PT IN BED, A/A/O X 3. NO SOB AND NO C/O PAIN @ THIS TIME. V/S 129/63, 98.2,75,18,98% RA. PICC LINE NOTED TO IRVIN NO INFILTRATE AND WITH GOOD BLOOD RETURN. BUE ARE STRONG AND BLE ARE WEAK AND NEEDS ASSITANCE TO SIT IN COMMODE. DISCUSSED PLAN OF CARE WITH PT AND VERBALIZED UNDERSTANDING. BED IN LOW POSITION WITH CALL LIGHT WITHIN REACH. WILL CONT TO MONITOR.
--- NOTE | 2016-11-06 19:35 | NUR ---
NOTES ENDORSED PT. TO INCOMING NURSE STILES. NEED FURTHER CARE AND OBSERVATION. Addendum: 11/06/16 at 1941 by Frannie Reyes RN ENDORSED TO NURSE ROY
--- NOTE | 2016-11-06 21:15 | NUR ---
TRANSFER TO BED FR COMMODE TRANSFER PT FR COMMODE TO BED SAFELY. NO SOB AND NO C/O, PAIN NOTED. BED IN LOW POSITION WITH CALL LIGHT WITHIN REACH; WILL CONT TO MONITOR.
--- NOTE | 2016-11-06 23:15 | NUR ---
ROUNDS PT IS COMFORTABLY RESTING @ THIS TIME. NO S/S OF PAIN AND NO DISTRESS NOTED. BED IN LOW POSITION WITH CALL LIGHT WITHIN REACH. WILL CONT TO MONITOR.
[2016-11-07] MEDS: IPRATROPIUM/ALBUTEROL SULFATE 3 ML AMPUL.NEB INH SCH ×7 (00:04→19:00)
[2016-11-07 00:16] VITALS: BP 129/64; PULSE 78; RESP 20; TEMP 97.1; O2SAT 97
--- NOTE | 2016-11-07 01:15 | NUR ---
PARTIAL BED BATH PARTIAL BED BATH RENDERED TO PT WITH ASSISTANCE FROM EMERY GODOY. CALL LIGHT WITHIN REACH, WILL CONT TO MONITOR.
--- NOTE | 2016-11-07 03:15 | NUR ---
PICC LINE DRESSING CHANGE CHANGED PICC LINE DRESSING. ASEPTIC TECHNIQUE WAS OBSERVED. TOLERATED WELL . NO C/O PAIN AND NO DISTRESS NOTED. WILL CONT TO MONITOR.
[2016-11-07] MEDS: ACETAMINOPHEN 325 MG TABLET PO PRN (03:19)
[2016-11-07 04:16] VITALS: BP 130/69; PULSE 79; RESP 18; TEMP 99.1; O2SAT 97
--- NOTE | 2016-11-07 05:15 | NUR ---
ASSISTED TO COMMODE ASSISTED PT TO COMMODE AND SAFELY BACK TO BED. NO S/S OF PAIN AND NO SOB NOTED. BED IN LOW POSITION AND CALL LIGHT WITHIN REACH. WILL CONT TO MONITOR.
[2016-11-07] MEDS: PIPERACILLIN/TAZO 4.5GM/DEX-IS 100 ML IV SCH ×3 (05:33→21:57)
[2016-11-07 06:23] LABS: CALCIUM 9.3 mg/dL (8.4-11.0); CREATININE 1.01 mg/dL (0.55-1.30); POTASSIUM 3.6 mmol/L (3.5-5.1)
[2016-11-07 06:42] LABS: BASOPHILS % (AUTO) 0.1 % (0.0-2.0); EOSINOPHILS # (AUTO) 0.2 K/uL (0.0-0.4); EOSINOPHILS % (AUTO) 2.9 % (0.0-4.0); HEMATOCRIT 27.1 % (36-48); HEMOGLOBIN 9.1 g/dL (12.0-16.0); LYMPHOCYTES # (AUTO) 0.9 K/uL (1.0-5.5); LYMPHOCYTES % (AUTO) 12.2 % (20.5-51.5); MEAN CORPUSCULAR HEMOGLOBIN 31 pg (27-31); MEAN CORPUSCULAR HGB CONC 33 % (32-36); MEAN CORPUSCULAR VOLUME 92 fL (79.0-98.0); MONOCYTES # (AUTO) 0.4 K/uL (0.0-1.0); MONOCYTES % (AUTO) 5.6 % (1.7-9.3); NEUTROPHILS # (AUTO) 5.9 K/uL (1.8-7.7); NEUTROPHILS % (AUTO) 79.2 % (40.0-70.0); PLATELET COUNT (AUTO) 161 K/uL (130-430); RED BLOOD CELL COUNT(AUTO) 2.96 MIL/uL (4.2-6.2); RED CELL DISTRIBUTION WIDTH 18.5 % (9.0-15.0); WHITE BLOOD COUNT (AUTO) 7.4 K/uL (4.8-10.8)
--- NOTE | 2016-11-07 06:54 | NUR ---
FINAL NOTES PT IS COMFORTABLY RESTING IN BED. NO S/S OF PAIN OR ANY DISTRESS. V/S ARE WNL. ALL NEEDS MET AND ANTICIPATED BY NOC NURSES. BED IN LOW POSITION WITH CALL LIGHT WITHIN REACH. ENDORSED.
--- NOTE | 2016-11-07 07:15 | NUR ---
AM ROUNDS PT. STILL SLEEPING WHEN CHANGED OF SHIFT. IN NO ACUTE DISTRESS. CALL LIGHT WITHIN REACH.
[2016-11-07 07:57] VITALS: BP 124/59; PULSE 77; RESP 20; TEMP 99.6; O2SAT 97
[2016-11-07] MEDS ORDERED: MAGNESIUM SULFATE 4 GM in D5W 250 ML IV ONE (08:45)
[2016-11-07] MEDS: ENOXAPARIN SODIUM 40 MG/0.4 ML SYRINGE SUBCUT SCH (08:55)
[2016-11-07] MEDS: NICOTINE 14 MG/24 HR PATCH.TD24 TD SCH (08:56)
[2016-11-07] MEDS: POTASSIUM CHLORIDE 20 MEQ TAB.PRT.SR PO SCH (09:00)
--- NOTE | 2016-11-07 09:09 | NUR ---
RN NOTES PT. AWAKE, DANGLING AT BEDSIDE, STILL EATING HER BREAKFAST, DUE MEDS GIVEN AND TOLERATED WELL. NEEDS ATTENDED. CALL LIGHT WITHIN REACH.
[2016-11-07] MEDS: THIAMINE HCL 100 MG TABLET PO SCH (09:12)
--- NOTE | 2016-11-07 10:10 | NUR ---
CONSULTATION: REASON FOR CONSULT: ETOH ABUSE CONSULTING PHYSICIAN: HARDY SRINIVASAN MD ORDERED BY: WAI GTZ DO SPOKE WITH ANUPAM
--- NOTE | 2016-11-07 10:25 | NUR ---
RN NOTESs started on MGSO4 drip at 64.5 ml/hr via PICC line. pt. comfortable, denies any discomfort.
[2016-11-07] MEDS: INSULIN REGULAR, HUMAN 100 UNITS/ML, 10 ML VIAL (novoLIN R) SUBCUT PRN ×3 (11:18→21:59)
[2016-11-07 12:55] VITALS: BP 121/63; PULSE 77; RESP 18; TEMP 97; O2SAT 97
--- NOTE | 2016-11-07 12:55 | NUR ---
RN NOTES PT. STILL ASKING FOR HER PEPCID, TOLD DR. MCGINNIS EARLIER BUT DID NOT ORDER, NURSE RAINA CALLED EXCHANGE AND LEFT MESSAGE.
--- NOTE | 2016-11-07 13:00 | NUR ---
RN NOTES DR MCGINNIS CALLED BACK AND INFORMED HIM ABOUT PEPCID AND DID GET A PHONE ORDER.
[2016-11-07] MEDS ORDERED: FAMOTIDINE 20 MG TABLET PO ONE (13:15)
--- NOTE | 2016-11-07 13:42 | NUR ---
RN NOTES pt. up in chair, wants to sit in a corner near the window, pt. feeling cold.IV MgSo4 still infusing.
--- NOTE | 2016-11-07 14:40 | NUR ---
RN NOTES pt. back to bed. continue to run IV antibiotic.
[2016-11-07] MEDS: VANCOMYCIN HCL 1,500 MG in NS 250 ML IV SCH (16:18)
--- NOTE | 2016-11-07 16:30 | NUR ---
RN NOTES remains awake, stay up at bedside, warm blanket given, pt. feeling cold.
[2016-11-07 16:39] VITALS: BP 138/65; PULSE 73; RESP 17; TEMP 97.6; O2SAT 100
--- NOTE | 2016-11-07 18:47 | NUR ---
CLOSING NOTES pt. still eating dinner, no complaints manifested. use commode . informed change of shift. PICC line patent and IV antibiotic still in progress. Addendum: 11/07/16 at 1851 by Frannie Reyes RN pt. visitor at bedside.
--- NOTE | 2016-11-07 19:25 | NUR ---
ENDORSED PT. TO INCOMING SHIFT WITH NURSE VILLAGOMEZ
--- NOTE | 2016-11-07 20:00 | NUR ---
Opening Note Report received from the day shift RN. Patient is in stable condition. Currently resting in bed. IV on the left arm is occluded. Will restart a new IV. O2 is at 4l via NC. Michael catheter is draining caio urine. Patient is alert and oriented, however, he is very forgetful. Currently on a full liquid diet tolerating well. Call light is within reach. Instructed to use it whenever in need of assistance. Addendum: 11/08/16 at 0745 by Claribel Love RN not not for this patient
--- NOTE | 2016-11-07 20:00 | NUR ---
Opening Note Report received from day shift RN. Patient is currently in stable condition. Call light is within reach. Instructed patient to use it whenever in need of assistance. RUE PICC line is currently saline locked.
[2016-11-07 20:19] VITALS: BP 124/60; PULSE 78; RESP 17; TEMP 98.8; O2SAT 98
[2016-11-07] MEDS: FAMOTIDINE 20 MG TABLET PO SCH (21:57)
--- NOTE | 2016-11-07 22:00 | NUR ---
Rounds Assisted patient to the commode and back into bed. Call light is within reach.
[2016-11-08] MEDS: IPRATROPIUM/ALBUTEROL SULFATE 3 ML AMPUL.NEB INH SCH ×7 (00:01→23:00)
--- NOTE | 2016-11-08 00:20 | NUR ---
Spoke with Spoke with Dr. Acosta who is director of operations support for Dr. Mata. Patient stated having 7/10 left sided chest pain that radiates to the left arm. Orders received for Lashmeet 5mg PO and troponin stat and in am. Current blood pressure is 138/62, heart rate is 88 sinus rhythm on the monitor. Will reassess.
[2016-11-08 00:32] VITALS: BP 137/40; PULSE 78; RESP 20; TEMP 97.4; O2SAT 100
[2016-11-08] MEDS: HYDROcodone/ACETAMIN 5-325 MG TAB (NORCO/ VICODIN) PO PRN ×3 (00:56→23:25)
--- NOTE | 2016-11-08 02:01 | NUR ---
CALLED: DR ISABEL IS FOAM CUTTING SUPERVISOR MD TSANTON PAGED TO NOTIFY THE TROPONIN LEVEL OF 0.099
--- NOTE | 2016-11-08 02:08 | NUR ---
Spoke with MD Spoke with Dr. Mcdonald, who is transport conductor for Dr. Mata. Report positive troponin of 0.099. Orders received for EKG, CXR, CPK in am. Order for cardio consult with Dr. Roldan also received.
--- NOTE | 2016-11-08 02:19 | NUR ---
Consult Called Reason for consultation: Chest Pain Was consult called: Yes Person who was notified: Deidre Consulting Physician: Hill Roldan MD (Dr. Bernard) Supervisor [place] Specialty: Automation Specialist Order by: Carol Mohamud MD
--- NOTE | 2016-11-08 04:00 | NUR ---
Rounds Patient is currently resting in bed. Call light is within reach.
[2016-11-08 04:13] VITALS: BP 119/55; PULSE 79; RESP 20; TEMP 97.1; O2SAT 97
[2016-11-08] MEDS: PIPERACILLIN/TAZO 4.5GM/DEX-IS 100 ML IV SCH ×3 (05:58→20:41)
--- NOTE | 2016-11-08 06:00 | NUR ---
Blood sugar Current blood sugar is 126. No coverage needed.
[2016-11-08 06:20] LABS: BASOPHILS % (AUTO) 0.2 % (0.0-2.0); EOSINOPHILS # (AUTO) 0.3 K/uL (0.0-0.4); HEMATOCRIT 27.8 % (36-48); HEMOGLOBIN 9.2 g/dL (12.0-16.0); LYMPHOCYTES # (AUTO) 1.3 K/uL (1.0-5.5); LYMPHOCYTES % (AUTO) 13.6 % (20.5-51.5); MEAN CORPUSCULAR HEMOGLOBIN 31 pg (27-31); MEAN CORPUSCULAR HGB CONC 33 % (32-36); MEAN CORPUSCULAR VOLUME 92 fL (79.0-98.0); MONOCYTES # (AUTO) 0.8 K/uL (0.0-1.0); MONOCYTES % (AUTO) 8.5 % (1.7-9.3); NEUTROPHILS # (AUTO) 7.1 K/uL (1.8-7.7); NEUTROPHILS % (AUTO) 74.7 % (40.0-70.0); PLATELET COUNT (AUTO) 156 K/uL (130-430); RED CELL DISTRIBUTION WIDTH 18.5 % (9.0-15.0); WHITE BLOOD COUNT (AUTO) 9.5 K/uL (4.8-10.8)
[2016-11-08 06:39] LABS: CALCIUM 9.5 mg/dL (8.4-11.0); CREATININE 0.93 mg/dL (0.55-1.30); POTASSIUM 3.7 mmol/L (3.5-5.1)
--- NOTE | 2016-11-08 06:40 | NUR ---
Closing Note Patient is currently in stable condition. Assisted her to the commode and back into bed. Call light is within reach. Will give report to the oncoming nurse.
[2016-11-08 08:00] VITALS: BP 135/73; PULSE 81; RESP 18; TEMP 98; O2SAT 96
--- NOTE | 2016-11-08 08:00 | NUR ---
AM NOTES PT SITTING AT THE EDGE OF THE BED. DENIES ANY DISCOMFORT AT THIS TIME. IN ROOM AIR. DENIES ANY SHORTNESS OF BREATH. WITH IRVIN PICC LINE. CLEAN AND DRY. ENC. PT TO CALL FOR HELP NEEDED. CALL LIGHT IN REACH. PT VERBALIZE UNDERSTANDING.
[2016-11-08] MEDS: POTASSIUM CHLORIDE 20 MEQ TAB.PRT.SR PO SCH (08:30)
[2016-11-08] MEDS: ENOXAPARIN SODIUM 40 MG/0.4 ML SYRINGE SUBCUT SCH (08:30)
[2016-11-08] MEDS: NICOTINE 14 MG/24 HR PATCH.TD24 TD SCH (08:31)
[2016-11-08] MEDS: buPROPion HCL 100 MG TABLET.SA PO SCH (08:31)
[2016-11-08] MEDS: FAMOTIDINE 20 MG TABLET PO SCH ×2 (08:31→20:41)
[2016-11-08] MEDS: THIAMINE HCL 100 MG TABLET PO SCH (08:32)
[2016-11-08] MEDS ORDERED: POTASSIUM CHLORIDE 20 MEQ TAB.PRT.SR PO ONE (09:15)
[2016-11-08] MEDS ORDERED: MAGNESIUM SULFATE 50 ML IV ONE (09:15)
--- NOTE | 2016-11-08 10:00 | NUR ---
NOTES SITTING IN THE CHAIR. DENIES ANY DISCOMFORT. NO DISTRESS NOTED.
--- NOTE | 2016-11-08 11:00 | NUR ---
MD ROUNDS SEEN BY DR. BAKER AT BEDSIDE.
[2016-11-08 11:18] VITALS: BP 125/61; PULSE 80; RESP 20; TEMP 97.3; O2SAT 98
--- NOTE | 2016-11-08 12:00 | NUR ---
NOTES EATING LUNCH. COMFORTABLE.
--- NOTE | 2016-11-08 14:30 | NUR ---
NOTES SITTING AT THE EDGE OF THE BED. DENIES ANY PAIN OR DISCOMFORT. CALL LIGHT IN REACH. ENC TO CALL WHEN GETTING OUT OF BED.
--- NOTE | 2016-11-08 15:30 | NUR ---
NOTES GRAEME, CIGAR PATCHER FROM [facility] CALLED AND STATED TO FAX FACESHEET, H&P AND E-MAR TO [facility]. INFORMATION RESOURCE CONSULTANT MADE AWARE
[2016-11-08] MEDS: VANCOMYCIN HCL 1,500 MG in NS 250 ML IV SCH (15:55)
--- NOTE | 2016-11-08 16:19 | NUR ---
NOTES Resting in bed at this time. no distress noted. medicated with norco for rt. knee pain earlier.
[2016-11-08 16:24] VITALS: BP 122/64; PULSE 77; RESP 20; TEMP 97.1; O2SAT 98
--- NOTE | 2016-11-08 17:10 | NUR ---
blood sugar 170. pt stated that she just eat. refused to have insulin at this time. wants it tonight if its still high.
--- NOTE | 2016-11-08 18:42 | NUR ---
NOTES SITTING IN THE CHAIR EATING DINNER. DENIES ANY PAIN OR DISCOMFORT. NO ACUTE DISTRESS NOTED. ALL NEEDS MEET. WILL ENDORSE
[2016-11-08 19:10] VITALS: BP 126/79; PULSE 84; RESP 19; TEMP 98; O2SAT 98
--- NOTE | 2016-11-08 19:10 | NUR ---
INITIAL ROUNDS RECVD PT IN BED, A/A/O X 3. NO SOB AND NO C/O PAIN @ THIS TIME. V/S 126/79,98.0,84,19,95% RA. PICC LINE NOTED TO IRVIN NO INFILTRATE AND WITH GOOD BLOOD RETURN. BUE ARE STRONG AND BLE ARE WEAK AND NEEDS ASSITANCE WITH WALKER TO SIT IN COMMODE. DISCUSSED PLAN OF CARE WITH PT AND VERBALIZED UNDERSTANDING. BED IN LOW POSITION WITH CALL LIGHT WITHIN REACH. WILL CONT TO MONITOR.
[2016-11-08] MEDS: INSULIN REGULAR, HUMAN 100 UNITS/ML, 10 ML VIAL (novoLIN R) SUBCUT PRN (20:50)
--- NOTE | 2016-11-08 21:10 | NUR ---
ROUNDS PT IS AWAKE @ THIS TIME WATCHING TV. NO S/S OF ANY DISTRESS AND NO C/O PAIN @ THIS TIME. BED IN LOW POSITION WITH CALL LIGHT WITHIN REACH. WILL CONT TO MONITOR.
--- NOTE | 2016-11-08 22:24 | NUR ---
ASSISTED TO COMMODE ASSISTED TO COMMODE AND SAFELY BACK TO BED. WILL CONT TO MONITOR.
[2016-11-09] VITALS (10 sets, daily range): BP systolic 112–139; BP diastolic 57–76; PULSE 74–86; RESP 14–20; TEMP 97.4–98.7; O2SAT 95–99
--- NOTE | 2016-11-09 00:25 | NUR ---
ROUNDS PT IS COMFORTABLY RESTING @ THIS TIME. NOS/S OF PAIN AND NO SOB NOTED. BED IN LOW POSITION AND CALL LIGHT WTHIN REACH; WILL CONT TO MONITOR.
--- NOTE | 2016-11-09 02:25 | NUR ---
ROUNDS PT IS RESTING COMFORTABLY. NO S/S OF PAIN AND NO SOB NOTED. BED IN LOW POSITION WITH CALL LIGHT WITHIN REACH. WILL CONT TO MONITOR.
[2016-11-09] MEDS: IPRATROPIUM/ALBUTEROL SULFATE 3 ML AMPUL.NEB INH SCH ×6 (03:00→23:00)
--- NOTE | 2016-11-09 04:25 | NUR ---
ASSISTED TO COMMODE ASSISTED TO COMMODE AND SAFELY BACK TO BED. WILL CONT TO MONITOR.
[2016-11-09] MEDS: PIPERACILLIN/TAZO 4.5GM/DEX-IS 100 ML IV SCH ×3 (05:14→21:21)
--- NOTE | 2016-11-09 06:57 | NUR ---
FINAL NOTES PT IS RESTING COMFORTABLY @ THIS TIME. NO S/S OF PAIN OR ANY DISTRESS NOTED. V/S ARE WITHIN LIMITS. ALL NEEDS MET AND ANTICIPATED BY NOC NURSES. BED IN LOW POSITION WITH SIDE UP X3 FOR SAFETY. CALL LIGHT WITHIN REACH; ENDORSED.
--- NOTE | 2016-11-09 07:20 | NUR ---
initial rounds: pt on bed awake, alert and oriented. i.v. access patent. discussed plan of care. call light within reach. report received at bedside.
[2016-11-09] MEDS: ENOXAPARIN SODIUM 40 MG/0.4 ML SYRINGE SUBCUT SCH (08:07)
[2016-11-09] MEDS: POTASSIUM CHLORIDE 20 MEQ TAB.PRT.SR PO SCH (08:07)
[2016-11-09] MEDS: buPROPion HCL 100 MG TABLET.SA PO SCH (08:08)
[2016-11-09] MEDS: NICOTINE 14 MG/24 HR PATCH.TD24 TD SCH (08:08)
[2016-11-09] MEDS: FAMOTIDINE 20 MG TABLET PO SCH ×2 (08:08→20:03)
[2016-11-09] MEDS: THIAMINE HCL 100 MG TABLET PO SCH (08:09)
--- NOTE | 2016-11-09 08:21 | NUR ---
rounds: pt on bed sitting. eating breakfast.
--- NOTE | 2016-11-09 09:30 | NUR ---
B.M. pt verbalized no BM for 4-5 days. Clarified to pt BM since per record she had 1. Denies it. Miralax given per daily ordered.
--- NOTE | 2016-11-09 10:07 | NUR ---
rounds: pt on bed using phone. stable.
[2016-11-09] MEDS ORDERED: POLYETHYLENE GLYCOL 3350, 17 GM/ POWD.PACK PO ONE (10:15)
--- NOTE | 2016-11-09 12:20 | NUR ---
Spoke to Dr. Yoder regarding cleared to discharge to [facility] per dr. Roldan , said she will yayo dr. Macdonald and let us know. Addendum: 11/09/16 at 1235 by Antoinette Perea RN Spoke to Dr. Macdonald patient not to discharge today
--- NOTE | 2016-11-09 14:55 | NUR ---
ROUNDS: PT sitting on the chair. no distress noted.
[2016-11-09] MEDS: TEARS ARTIFICIAL 15 ML DROPS OP PRN (15:50)
[2016-11-09] MEDS: INSULIN REGULAR, HUMAN 100 UNITS/ML, 10 ML VIAL (novoLIN R) SUBCUT PRN ×2 (17:29→21:23)
--- NOTE | 2016-11-09 17:41 | NUR ---
rounds: Blood sugar 167. insulin coverage given 2 units regular.
--- NOTE | 2016-11-09 19:15 | NUR ---
change of shift.pt.initial assessment.pt.presents stable status.pt.presents picc line :location:rt.bicept.iv locked. 2 lumens.i apprised pt.that snacks r available throughout shift.pt.requested snack.provided.call saravanan w/in pt's reach.
--- NOTE | 2016-11-09 19:22 | NUR ---
closing notes: pt sitting on the chair. stable. needs attended. call light within reach. report given to shift superintendent.
--- NOTE | 2016-11-09 20:00 | NUR ---
pt.assessed.v/s assessed.picc line assessed.dry intact clean.changed:11/07/16.pt.requested pepcid:po @this hour due@2100p.blood glucose:assessed;169mg/dl.assisted pt.2 bsc.bsc:attended 2:cleaned.emptied.call light w/in pt's reach.
--- NOTE | 2016-11-09 21:00 | NUR ---
2100p medications administered.pt.requested pain medication:norco:5/325mg po 1 tab administered. pt.assisted 2 bsc.attended 2 bsc:emptied/cleaned.2 f/u re:alexandr mgx per protocol.ivpb administered.
[2016-11-09] MEDS: LACTULOSE 20 GM/30 ML UDC PO SCH (21:20)
[2016-11-09] MEDS: MAGNESIUM CHLORIDE 64 MG TABLET.DR PO SCH (21:20)
[2016-11-09] MEDS: HYDROcodone/ACETAMIN 5-325 MG TAB (NORCO/ VICODIN) PO PRN (21:29)
--- NOTE | 2016-11-09 22:00 | NUR ---
pt,.assessed.pt.assisted 2 the bsc.attended 2 bsc:emptied/cleaned.ivpb completed:iv fluids removed via picc line. assisted pt.w/blankets.call light. placed w/in pt's reach.
--- NOTE | 2016-11-10 | NUR ---
pt.assessed.pt.presents quiescent affect;calm,asleep.attended 2 the bsc:emptied,cleaned.call light w/in pt's reach.no distress/discomfort manifested.
--- NOTE | 2016-11-10 02:00 | NUR ---
pt.assessed.pt.assisted 2 bsc.attended 2 bsc:emptied,cleaned.assisted pt.w/blankets.no request@this hour. call light w/in pt's reach.
[2016-11-10] MEDS: IPRATROPIUM/ALBUTEROL SULFATE 3 ML AMPUL.NEB INH SCH ×3 (03:00→11:00)
[2016-11-10 03:53] VITALS: BP 110/72; PULSE 76; RESP 20; TEMP 98.4; O2SAT 97
--- NOTE | 2016-11-10 04:00 | NUR ---
pt.assessed.bsc attended 2;emptied, cleaned,pt.returned 2 bed.assisted w/ blankets.no request @this hour. [facility]/in pt's reach.
[2016-11-10] MEDS: PIPERACILLIN/TAZO 4.5GM/DEX-IS 100 ML IV SCH ×2 (05:38→13:02)
[2016-11-10 07:04] LABS: BASOPHILS % (AUTO) 0.5 % (0.0-2.0); EOSINOPHILS # (AUTO) 0.3 K/uL (0.0-0.4); EOSINOPHILS % (AUTO) 3.5 % (0.0-4.0); HEMATOCRIT 28.6 % (36-48); HEMOGLOBIN 8.9 g/dL (12.0-16.0); LYMPHOCYTES # (AUTO) 1.4 K/uL (1.0-5.5); LYMPHOCYTES % (AUTO) 17.9 % (20.5-51.5); MEAN CORPUSCULAR HEMOGLOBIN 29 pg (27-31); MEAN CORPUSCULAR HGB CONC 31 % (32-36); MEAN CORPUSCULAR VOLUME 93 fL (79.0-98.0); MONOCYTES # (AUTO) 0.8 K/uL (0.0-1.0); MONOCYTES % (AUTO) 9.7 % (1.7-9.3); NEUTROPHILS # (AUTO) 5.3 K/uL (1.8-7.7); NEUTROPHILS % (AUTO) 68.4 % (40.0-70.0); PLATELET COUNT (AUTO) 144 K/uL (130-430); RED BLOOD CELL COUNT(AUTO) 3.08 MIL/uL (4.2-6.2); RED CELL DISTRIBUTION WIDTH 18.9 % (9.0-15.0); WHITE BLOOD COUNT (AUTO) 7.8 K/uL (4.8-10.8)
[2016-11-10 07:07] LABS: CALCIUM 9.5 mg/dL (8.4-11.0); CREATININE 0.89 mg/dL (0.55-1.30); POTASSIUM 3.6 mmol/L (3.5-5.1)
--- NOTE | 2016-11-10 07:20 | NUR ---
initial notes: pt sitting on the chair. stable. i.v. access in placed. discussed plan of care. call light within reach. report received at bedside.
[2016-11-10 08:00] VITALS: BP 124/65; PULSE 74; RESP 16; TEMP 97.4; O2SAT 98
[2016-11-10] MEDS: LACTULOSE 20 GM/30 ML UDC PO SCH (09:00)
[2016-11-10] MEDS ORDERED: NICOTINE 7 MG/24 HR PATCH.TD24 TD SCH (09:00)
[2016-11-10] MEDS ORDERED: buPROPion HCL 150 MG TABLET.SA PO SCH (09:00)
[2016-11-10] MEDS ORDERED: POLYETHYLENE GLYCOL 3350, 17 GM/ POWD.PACK PO SCH (09:00)
[2016-11-10] MEDS: POTASSIUM CHLORIDE 20 MEQ TAB.PRT.SR PO SCH (09:31)
[2016-11-10] MEDS: ENOXAPARIN SODIUM 40 MG/0.4 ML SYRINGE SUBCUT SCH (09:32)
[2016-11-10] MEDS: THIAMINE HCL 100 MG TABLET PO SCH (09:32)
[2016-11-10] MEDS: FAMOTIDINE 20 MG TABLET PO SCH (09:33)
[2016-11-10] MEDS: MAGNESIUM CHLORIDE 64 MG TABLET.DR PO SCH (09:33)
[2016-11-10] MEDS: TEARS ARTIFICIAL 15 ML DROPS OP PRN (09:36)
--- NOTE | 2016-11-10 09:47 | NUR ---
rounds: pt sitting on the chair. no distress noted.
[2016-11-10] MEDS ORDERED: WELSR150 PO (10:07)
[2016-11-10] MEDS ORDERED: IPRA3AMP9 INH (10:15)
--- NOTE | 2016-11-10 10:50 | NUR ---
Telephone order: spoke to Pradeep Qureshi per LORELEI the pt is no 5150 and cannot be discharge with ambulance to [facility]. LORELEI will arrange a taxi and appointment with [facility]. Dr. Berkowitz D/C the pt home with follow up outpatient with [facility].
--- NOTE | 2016-11-10 10:56 | NUR ---
Social Service Note: [facility] received an order for pt to be transferred to [facility]; Pt is not currently on a 5150; [facility] met with pt at bedside; pt is willing to go to [facility] voluntary. [facility] has placed call to insurance adjuster and left a message to see if transportation would be covered for pt. [facility] has faxed pt's information to [facility] for review ([phone] f.[phone]). [facility] will follow up to see if pt is accepted for voluntary admission. Pt may need to be discharged home and then follow up with [facility] on a outpatient basis. [facility] will follow up with [facility] and pt's insurance adjuster. Addendum: 11/10/16 at 1203 by Joselin Aguilar [facility] received call from Sonia with [facility]; Sonia states that if pt is not on a hold and can walk then pt should be discharged home and can follow up with [facility]. [facility] updated pt's nurse to speak with physician to have order changed. [facility] has faxed Dr. Heart progress notes to [facility] for review. Pt is open to being discharged home if she can go to [facility] voluntary; pt states that she will go straight to [facility] for evaluation. Pt aware that she needs to be evaluated once she is at [facility] to determine if she meets criteria to be admitted.
--- NOTE | 2016-11-10 11:33 | NUR ---
PRANAV RE-EVALUATION: Patient evaluated for a low Pranav score of 15. Patient was awake, alert, oriented, and received in a Milagros bed with an IsoFlex MIKE mattress. Patient is able to turn in bed and ambulate independently. Skin is fair. Recommend encourage and assist patient as needed with repositioning every 2 hours with pillow support and off-load pressure areas with pillows for pressure re-distribution. Elevate, off-load and float bilateral heels with pillows. Use moisture barrier cream on buttocks and other moisture susceptible areas QID and as needed for soiling. Perform skin care and monitor skin integrity Q shift.
[2016-11-10 12:00] VITALS: BP 128/69; PULSE 88; RESP 18; TEMP 98; O2SAT 97
[2016-11-10 13:57] VITALS: BP 142/89; PULSE 82; RESP 16; TEMP 98.4; O2SAT 98
--- NOTE | 2016-11-10 14:24 | NUR ---
[employer] [employer] faxed pt's discharge order to [facility] [employer] ([phone]).
--- NOTE | 2016-11-10 15:01 | NUR ---
PICC LINE: D/C PICC line, intact and no active bleeding. Applied dressing.
--- NOTE | 2016-11-10 15:41 | NUR ---
PHYSICAL THERAPY CO-SIGN The Physical Therapy Progress Notes documented by Or Director have been reviewed. Pt WILL CONT TO BENEFIT W/PT; CONT PER TX PLAN Reviewed/Co-Signed by: Elda Morse PT Documentation Done by: MARY BARRAGAN MINER ASSISTANT Addendum: 11/10/16 at 1541 by Elda Morse PT Amended: Links added.
--- NOTE | 2016-11-10 16:05 | NUR ---
D/C Patient Patient given medication reconciliation form and D/C instructions. Exit Care provided. Patient verbalized understanding. MD discussed with patient the results and treatment provided. Ambulatory with steady gait for discharge to home. Patient in stable condition, ID band removed. IV catheter removed, intact and dressing applied, no active bleeding. Rx given thru electronic prescription. Patient educated on pain management. All belongings sent with patient.
== END 2016-11-10 16:05 | disposition home or self-care (01) | DRG 915 ==
LOC: SED 01:55 → OBSVTOIN 03:46 → STU 03:46 → SIC 10-30 07:30 → STU 11-06 12:59
PROVIDERS: ADMIT Internal Medicine; ATTEND Internal Medicine
PROC: 30233L1 Transfusion of Nonautologous Fresh Plasma into Peripheral Vein, Percutaneous Approach (ICD-10-PCS; 2016-10-28)
PROC: 30233K1 Transfusion of Nonautologous Frozen Plasma into Peripheral Vein, Percutaneous Approach (ICD-10-PCS; 2016-10-28)
PROC: 5A1945Z Respiratory Ventilation, 24-96 Consecutive Hours (ICD-10-PCS; principal; 2016-10-30)
PROC: 0BH17EZ Insertion of Endotracheal Airway into Trachea, Via Natural or Artificial Opening (ICD-10-PCS; 2016-10-30)
PROC: 02HV33Z Insertion of Infusion Device into Superior Vena Cava, Percutaneous Approach (ICD-10-PCS; 2016-10-31)
PROC: B548ZZA Ultrasonography of Superior Vena Cava, Guidance (ICD-10-PCS; 2016-10-31)
PROC: 5A09457 Assistance with Respiratory Ventilation, 24-96 Consecutive Hours, Continuous Positive Airway Pressure (ICD-10-PCS; 2016-10-31)
DX: T78.3XXA Angioneurotic edema, initial encounter (principal); J69.0 Pneumonitis due to inhalation of food and vomit; J96.90 Respiratory failure, unspecified, unspecified whether with hypoxia or hypercapnia; E87.1 Hypo-osmolality and hyponatremia; Z68.42 Body mass index [BMI] 45.0-49.9, adult; F32.2 Major depressive disorder, single episode, severe without psychotic features; N17.9 Acute kidney failure, unspecified; F10.231 Alcohol dependence with withdrawal delirium; J44.9 Chronic obstructive pulmonary disease, unspecified; K21.9 Gastro-esophageal reflux disease without esophagitis; E78.5 Hyperlipidemia, unspecified; E66.01 Morbid (severe) obesity due to excess calories; I50.9 Heart failure, unspecified; I11.0 Hypertensive heart disease with heart failure; J38.5 Laryngeal spasm; D64.9 Anemia, unspecified; T46.4X5A Adverse effect of angiotensin-converting-enzyme inhibitors, initial encounter; E11.9 Type 2 diabetes mellitus without complications; F17.210 Nicotine dependence, cigarettes, uncomplicated; L40.9 Psoriasis, unspecified; Z82.0 Family history of epilepsy and other diseases of the nervous system; Z81.1 Family history of alcohol abuse and dependence; Z83.3 Family history of diabetes mellitus; Z87.01 Personal history of pneumonia (recurrent); Z88.8 Allergy status to other drugs, medicaments and biological substances; Z91.040 Latex allergy status
CPT/HCPCS: 36415; 36600; 71010; 76700-TC; 80048; 80053; 80202-TC; 81000-TC; 82140-TC; 82550-TC; 82570-TC; 82803-TC; 82962; 83735-TC; 83880; 83930-TC; 83935-TC; 84100-TC; 84302-TC; 84484; 85025; 85610-TC; 85730-TC; 86900; 86901; 87040-TC; 87081; 87086; 87205-TC; 93005; 93306; 94002; 94003; 94640; 94660; 94760; 96372; 96374; 96375; 97110-GP; 97116-GP; 97530-GP; 99285; C1751; J0171; J0330; J0360; J1030; J1200; J1630; J1650; J1815; J1940; J2060; J2270; J2543; J2704; J2930; J3370; J3411; J3475; J3490; J7030; J7040; J7042; J7050; J7060; P9059

== ENCOUNTER 2019-08-22 05:00 | Day surgery (SDC) | payer OTHER ==
[~2019-08-22] VITALS: Ht 170.2 cm; Wt 142.0 kg
[~2019-08-22 05:00] MED LIST: FOLI-43 PO; GLIP10TA21 PO; IPRA3AMP9 INH; OMEP20CA11 PO; VITD2000 PO; WELSR150 PO
[2019-08-22] MEDS ORDERED: CEFAZOLIN SOD 1 GM in D5W 50 ML IV ONE (07:00)
[2019-08-22] MEDS ORDERED: IOHEXOL 50 ML IV ONE (07:41)
[2019-08-22] MEDS ORDERED: D5/0.45 NS 1,000 ML IV SCH (08:33)
[2019-08-22] MEDS ORDERED: HYDROmorphone 1 MG INJ. 1 MG/ML AMPUL IVP PRN ×2 (08:45→09:15)
[2019-08-22] MEDS ORDERED: HYDROcodone/ACETAMIN 5-325 MG TAB (NORCO/ VICODIN) PO PRN ×2 (08:45)
[2019-08-22] MEDS ORDERED: ONDANSETRON HCL 4 MG/2 ML VIAL IVP PRN (09:15)
[2019-08-22] MEDS ORDERED: HYDROcodone/ACETAMIN 5-325 MG TAB (NORCO/ VICODIN) ONE (09:54)
[2019-08-22 11:05] VITALS: BP_SYST 141
== END 2019-08-22 11:48 | disposition home or self-care (01) ==
LOC: SDS 05:00 → SMU 05:00 → SDS 11:48
PROVIDERS: ATTEND Colon & Rectal Surgery
DX: K80.10 Calculus of gallbladder with chronic cholecystitis without obstruction (principal); K74.60 Unspecified cirrhosis of liver; K21.9 Gastro-esophageal reflux disease without esophagitis; J44.9 Chronic obstructive pulmonary disease, unspecified; E11.42 Type 2 diabetes mellitus with diabetic polyneuropathy; E11.22 Type 2 diabetes mellitus with diabetic chronic kidney disease; N18.2 Chronic kidney disease, stage 2 (mild); E66.01 Morbid (severe) obesity due to excess calories; D64.9 Anemia, unspecified; I12.9 Hypertensive chronic kidney disease with stage 1 through stage 4 chronic kidney disease, or unspecified chronic kidney disease; F33.1 Major depressive disorder, recurrent, moderate; F17.200 Nicotine dependence, unspecified, uncomplicated; Z91.040 Latex allergy status; Z88.8 Allergy status to other drugs, medicaments and biological substances; Z79.899 Other long term (current) drug therapy
CPT/HCPCS: 47001; 47562; 82962; 88307; 88313; C1727; C1758; J0690; J7060; J7120; Q9967